=== PATIENT | female | born 1955 | race Caucasian/White ===

== ENCOUNTER 2020-04-23 07:07 | Outpatient (REF) | payer OTHER, SELFPAY ==
[2020-04-23 07:54] LABS: COVID-19 Test Negative (Negative)
== END 2020-04-23 07:08 | disposition home or self-care (01) ==
LOC: HO.LAB 07:07
PROVIDERS: Visit Provider Internal Medicine
DX: Z20.828 Contact with and (suspected) exposure to other viral communicable diseases (principal)
CPT/HCPCS: 87635

== ENCOUNTER 2020-06-07 08:05 | Outpatient (REF) | payer OTHER, SELFPAY ==
[2020-06-07 08:51] LABS: COVID-19 Test Negative (Negative); IDNOW Serial# 55D5AD1C
== END 2020-06-07 08:06 | disposition home or self-care (01) ==
LOC: HO.EMPCOV 08:05
PROVIDERS: PCP Internal Medicine; Visit Provider Internal Medicine
DX: Z20.828 Contact with and (suspected) exposure to other viral communicable diseases (principal)
CPT/HCPCS: 87635; C9803

== ENCOUNTER 2022-03-21 13:47 | Outpatient (REF) | payer OTHER, SELFPAY ==
--- NOTE | ~2022-03-21 | MM_ITS ---
EXAMINATION: MM SCREENING DIGITAL BREAST TOMOSYNTHESIS, BILATERAL CLINICAL INFORMATION: Screening. Asymptomatic. The lifetime risk of breast cancer based on the Tyrer-Cuzick Model is 4%. COMPARISON: Outside mammography 08/10/2016, 03/27/2010 ([facility]). TECHNIQUE: Digital breast tomosynthesis is performed in both the craniocaudal and mediolateral oblique views along with computer-aided detection (CAD). Synthesized 2D images are generated from the tomosynthesis. FINDINGS: The breasts are heterogeneously dense, which may obscure small masses (ACR BI-RADS breast composition Category c). There are no significant masses, abnormal calcifications, or other abnormalities. Parenchymal pattern is similar to prior outside exams. There is no developing density or architectural abnormality. The axilla and skin contours are unremarkable. No significant changes. MM/MM tomosynthesis screening BI IMPRESSION: No mammographic evidence of malignancy. ASSESSMENT: BI-RADS 1: Negative RECOMMENDATION: Routine annual mammography screening. This patient's information was entered into a reminder system with a target due date for their next mammogram.
--- NOTE | ~2022-03-21 | MM_ITS ---
EXAMINATION: BONE DENSITOMETRY CLINICAL INDICATION: Asymptomatic postprocedural ovarian failure. COMPARISON: None (current study represents initial baseline exam). TECHNIQUE: Using a [employer] DXA System (software version: 13.1) manufactured by [employer], dual-energy x-ray absorptiometry was performed of the lumbar spine and left hip. The images are of good technical quality. Summary results are attached. FINDINGS: AP SPINE L1-L4: BMD 0.901 g/cm2, Z-score -0.6, T-score -2.3, osteopenia. LEFT FEMUR, NECK: BMD 0.692 g/cm2, Z-score -0.9, T-score -2.5, osteoporosis. LEFT FEMUR, TOTAL: BMD 0.756 g/cm2, Z-score -0.7, T-score -2.0, osteopenia. IDENTIFIED RISK FACTORS: Secondary osteoporosis (early menopause). Left oophorectomy. Hysterectomy. HISTORY OF FRACTURE: None listed. MEDICATIONS: Multivitamin. MM/XR DEXA axial skeleton IMPRESSION: 1. DIAGNOSIS: Osteoporosis based on the lowest T-score value of -2.5 in the femoral neck applying World Health Organization criteria. 2. 10-YEAR FRACTURE RISK PREDICTION, FRAX: According to the guidelines, FRAX calculation should only be performed on patients in the osteopenia bone density category.?Therefore, FRAX was not performed on this patient.? 3. Treatment Recommendations: NOF guidelines recommend consideration for treatment in postmenopausal women and men age 50 and older presenting with the following: -A hip or vertebral (clinical or morphometric) fracture. -T-score less than or equal to -2.5 at the femoral neck or spine after appropriate evaluation to exclude secondary causes. -Low bone mass at the hip or spine and a 10-year fracture probability by FRAX of greater than or equal to 3% for hip fracture or greater than or equal to 20% for major osteoporotic fracture based on the [place] adapted WHO algorithm. 4. Other Recommendations: All treatment decisions require clinical judgment and consideration of individual patient factors, including patient preferences, comorbidities, previous drug use, risk factors not captured in the FRAX model (e.g. frailty, falls, vitamin D deficiency, increased bone turnover, interval significant decline in bone density) and possible under or overestimation of fracture risk by FRAX. Additional medical evaluation for secondary cause of low bone mineral density may be appropriate. FUTURE SCAN RECOMMENDATION: People with diagnosed cases of osteoporosis or at high risk for fracture should have regular bone mineral density tests. For patients eligible for Medicare, routine testing is allowed once every 2 years. The testing frequency can be increased to one year for patients who have rapidly progressing disease, those who are receiving or discontinuing medical therapy to restore bone mass, or have additional risk factors.
== END 2022-03-21 13:48 | disposition home or self-care (01) ==
LOC: HO.MAMMO 13:47
PROVIDERS: Visit Provider Internal Medicine
DX: Z12.31 Encounter for screening mammogram for malignant neoplasm of breast (principal); E89.40 Asymptomatic postprocedural ovarian failure; Z13.820 Encounter for screening for osteoporosis; Z78.0 Asymptomatic menopausal state
CPT/HCPCS: 77063; 77067; 77080

== ENCOUNTER 2022-07-31 09:27 | Day surgery (SDC) | payer OTHER, SELFPAY ==
[2022-07-24 19:01] VITALS: BMI 19.5
[2022-07-31 09:37] VITALS: BP 102/71; PULSE 104; RESP 20; TEMP 36.9; O2SAT 97
--- NOTE | 2022-07-31 09:48 | P.HPSUR_ITS ---
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 Chronic GERD Chronic insomnia Depression, major, in remission Environmental and seasonal allergies Hx of Mycobacterium avium complex infection) History of Previous Operations: Relevant previous surgery/procedure and date(s) (Hx of tonsillectomy Status post abdominal hysterectomy and left salpingo- oophorectomy) Allergies: Allergies Allergy/AdvReac Type Severity Reaction Status Date / Time codeine AdvReac swolleness Verified 07/25/22 14:04 latex AdvReac hives Verified 07/25/22 14:04 peanut AdvReac Anaphylaxis Verified 07/25/22 14:04 Penicillins AdvReac Anaphylaxis Verified 07/25/22 14:04 shellfish derived AdvReac hives Verified 07/25/22 14:04 Review of Systems Sugical H&P ROS: Negative: Constitution, Cardiovascular, Respiratory, Neurological, Psychiatric, Hem-Onc, Allergic/Immunologic, Gastrointestinal, Genitourinary, Musculoskeletal, Integumentary, Endocrine and Eyes/Ears/Nose/Throat Exam Surgical H&P Exam: Normal: HEENT, Normal: Heart, Normal: Lungs, Normal: Extremities, Normal: Abdomen, Normal: Skin and Normal: Neurological Plan Diagnosis/Plan: Unchanged I have reviewed the history and physical and performed a pertinent physical examination on my patient. No changes have occurred unless specified. Time Spent With Patient Time: Total time managing care of this patient today ____ minutes.
--- NOTE | 2022-07-31 10:11 | HO.ANESPROP2 ---
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 Chronic GERD Chronic insomnia Depression, major, in remission Environmental and seasonal allergies Hx of Mycobacterium avium complex infection Family History Family History Mother Mental health disorder Family history of problems with anesthesia: No Surgical History Surgical History Hx of tonsillectomy Status post abdominal hysterectomy and left salpingo-oophorectomy History of Problems with Anesthesia: No Social History Social History Household Members Other:: boyfriend Housing: House Are you a primary post acute care nurse practitioner to a significant other at home: No Do you presently have visiting nurse or other home services: No Patient Tobacco Use Status: Never used Tobacco e-Cigarette/Vaping Use: Never Used Use of substances other than those prescribed or required for medical reasons: No Have you been hit, kicked, punched, or otherwise hurt by someone within the past year? 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[employer] [place] Cognitive needs: No Hearing needs: No Vision needs: Yes Meds Allergies Allergy/AdvReac Type Severity Reaction Status Date / Time codeine AdvReac swolleness Verified 07/25/22 14:04 latex AdvReac hives Verified 07/25/22 14:04 peanut AdvReac Anaphylaxis Verified 07/25/22 14:04 Penicillins AdvReac Anaphylaxis Verified 07/25/22 14:04 shellfish derived AdvReac hives Verified 07/25/22 14:04 Active Medications: Current Medications Lactated Ringer's (Lr) 1,000 mls @ 80 mls/hr IVCONT .[id number] [facility] Home Medications Medication Instructions Recorded Confirmed Last Taken Type albuterol sulfate 90 mcg/actuation 2 puff inhalation Q6H PRN Wheezing 03/13/22 07/25/22 Unknown History aerosol inhaler (Ventolin HFA) diphenhydramine HCl 25 mg tablet 25 mg PO TID PRN Allergy Symptoms 03/13/22 07/25/22 Unknown History (Allergy (diphenhydramine)) omeprazole 20 mg capsule,delayed 20 mg PO DAILY 03/13/22 07/25/22 07/31/22 History release Exam Exam Date and Time: July 31, 2022 1011 Height,Weight and Vital Signs: Height 5 ft 7 in Weight 56.699 kg Last Vital Signs Temp 98.4 F 07/31/22 09:37 Pulse 104 H 07/31/22 09:37 Resp 20 07/31/22 09:37 BP 102/71 07/31/22 09:37 Pulse Ox 97 07/31/22 09:37 O2 Del Method 07/31/22 09:37 Airway Mallampati Class: II TM Dist: >3cm Neck ROM: Limited Denture: Upper Heart: rrr Lungs: cta Assessment and Plan Final Anesthetic Review Family History of Problems with Anesthesia: No History of Problems with Anesthesia: No NPO: Yes ASA Class: III Final Preanesthetic Review: No Changes in Pt Med Stat, Meds/Allgs Chart Reviewed, Consent Obtained/Reviewed and Anes Risks/Benef Reviewed Patient Risk: Intermediate Procedure Risk: Intermediate Anesthetic Plan Anesthetic Plan: MAC: and Agree w/ Assess. and Plan Disposition: Standard PACU
[2022-07-31] MEDS: Lactated Ringers 1,000 ML 80 ML IVCONT (10:32)
--- NOTE | 2022-07-31 10:39 | W.PM.OPN ---
Operative Note Operative Note Date of Service: 07/31/22 Narrative: Operative Information Procedure Description: EGD, Colonoscopy Indication: GERD, screening Anesthesia: MAC FLEXIBLE TRANSORAL UPPER GASTROINTESTINAL ENDOSCOPY AND COLONOSCOPY PROCEDURE NOTE UPPER ENDOSCOPY Consent: Indications for the procedure and potential complications of bleeding, perforation, reaction to medications and missed diagnosis were discussed with the patient and informed consent was obtained. Instrument: Olympus GIF H 190 J mid size upper endoscope Monitoring: Vital signs and clinical assessment, continuous EKG monitoring, Pulse oximetry, Carbon Dioxide monitoring and blood pressure monitoring were done throughout the procedure. Procedure: The patient was placed in the left lateral decubitis position and pre-procedure medications were administered and a bite block was placed. The endoscope was inserted into the mouth and advanced under direct vision to the third part of duodenum. A careful inspection was made as the upper endoscope was withdrawn including a retroflexed examination of the proximal stomach; Findings and interventions are described below. Findings: Larynx:normal Esophagus: GE junction at 38 cm, diaphragm hiatus at 40 cm, mild esophagitis at GEJ as well as schatzki ring, bx taken from GEJ and distal esophagus. LES was also lax. 2 cm sliding hiatal hernia noted. Stomach: Patchy erythema. Biopsies were obtained. Grade 3 flap valve on retroflexed examination of the cardia. 6-7 mm sessile polyp removed near the cardia with cold forceps Duodenum: Normal bulb and descending duodenum, Intervention: Biopsies as noted above COLONOSCOPY Instrument: Olympus variable stiffness pediatric scope 190L Colonoscopy Monitoring: Vital signs and clinical assessment, continuous EKG monitoring, Pulse oximetry, Carbon Dioxide monitoring and blood pressure monitoring were done throughout the procedure. Colon withdrawal time was 8 minutes. Procedure: The patient was placed in the left lateral decubitis position and pre-procedure medications were administered. After a digital rectal examination of the ano-rectum, the video colonoscope was inserted into the rectum and advanced through the colon to the cecum/TI. The colonoscope was slowly withdrawn in a retrograde panoramic fashion and the colon mucosa was carefully examined including a retroflexed view of the rectum. Findings and interventions are described below. Procedure Difficulty: easy Findings: Terminal Ileum-normal Cecum: 6-7 mm sessile polypoid tissue removed with cold forceps Ascending Colon: normal Transverse Colon -normal Descending Colon:normal Sigmoid Colon: midl diverticulosis Rectum: Retroflexion with moderate sized internal hemorrhoids, grade I Anorectum - normal Colon preparation: [place] Bowel Preparation Scale Right colon; 2 Transverse colon: 2 Left colon; 2 (0 = Unprepared colon segment with mucosa not seen due to solid stool that cannot be cleared. 1 = Portion of mucosa of the colon segment seen, but other areas of the colon segment not well seen due to staining, residual stool and/or opaque liquid. 2 = Minor amount of residual staining, small fragments of stool and/or opaque liquid, but mucosa of colon segment seen well. 3 = Entire mucosa of colon segment seen well with no residual staining, small fragments of stool or opaque liquid) Impression and Post Procedure Diagnosis: Endoscopy Findings: hiatal hernia schatzki ring gastritis esophagitis lax LES Colonoscopy Findings: polyp internal hemorrhoids diverticular disease Plan: Await Pathology results Repeat Colonoscopy in 5-7 years if pre cancerous polyp, 10 yrs if benign or earlier if clinically indicated High fiber diet leaflet avoid straining at stool, epsom salts and sitz bath, anusol supps or cream GERd precautions, can consider increasing PPI if needed Above findings were reviewed with the patient and relevant handouts were provided if indicated.
[2022-07-31 11:48] VITALS: BP 93/56; PULSE 77; RESP 16; TEMP 36.6; O2SAT 100
[2022-07-31 12:03] VITALS: BP 108/67; PULSE 77; RESP 16; TEMP 36.1; O2SAT 99
== END 2022-07-31 12:51 | disposition home or self-care (01) ==
PROVIDERS: PCP Internal Medicine; Visit Provider Internal Medicine Gastroenterology
PROC: (CPT 45380; principal; 2022-07-31 10:50)
DX: Z12.11 Encounter for screening for malignant neoplasm of colon (principal); D12.0 Benign neoplasm of cecum; K57.30 Diverticulosis of large intestine without perforation or abscess without bleeding; K64.0 First degree hemorrhoids; K21.00 Gastro-esophageal reflux disease with esophagitis, without bleeding; K22.2 Esophageal obstruction; K29.50 Unspecified chronic gastritis without bleeding; K31.7 Polyp of stomach and duodenum; K44.9 Diaphragmatic hernia without obstruction or gangrene; K22.4 Dyskinesia of esophagus; F32.5 Major depressive disorder, single episode, in full remission; Z79.899 Other long term (current) drug therapy; Z91.010 Allergy to peanuts; Z88.8 Allergy status to other drugs, medicaments and biological substances; Z88.0 Allergy status to penicillin; Z91.040 Latex allergy status
CPT/HCPCS: 45380; 43239; 88300; 88305; 88342; J2250

== ENCOUNTER → 2022-08-14 10:45 | Outpatient (BNVA) | payer OTHER, SELFPAY | PROVIDERS: PCP Internal Medicine; Visit Provider Nurse Practitioner Family | DX: Z13.89 Encounter for screening for other disorder (principal) ==

== ENCOUNTER 2023-09-10 07:13 | Inpatient (IN) | payer OTHER, SELFPAY ==
--- NOTE | ~2023-09-10 | CT_ITS ---
EXAMINATION: CT angio head neck stroke CLINICAL INFORMATION: Weakness. Slurred speech. COMPARISON: CT head 09/10/2023. TECHNIQUE: Recruiter Specialist images were obtained. A CT angiogram of the head and neck was performed in the arterial phase after the intravenous administration of 70 mL Omnipaque 350. Delayed postcontrast images of the head were also obtained. 3D images were processed on an independent workstation under concurrent supervision. Arterial stenoses are measured in accordance with NASCET criteria or similar method if applicable. This CT examination was performed using dose optimization techniques as appropriate, including one or more of the following: Automated exposure control, iterative reconstruction, and adjustment of technique factors (mA and/or kVp) according to patient size (this includes techniques or standardized protocols for targeted exams where dose is matched to indication/reason for exam). Fleischner Society criteria for the followup of incidental pulmonary nodules was implemented if appropriate. Total exam dose-length product 1350 mGy-cm FINDINGS: Head: Postcontrast images reveal no abnormal intracranial mass or enhancement. There is no intracranial mass effect or midline shift. Lateral and third ventricles are normal. No hydrocephalus. Pat-white matter differentiation is preserved and there is no evidence of acute territorial infarct. The calvarium and skull base are intact. Mastoid air cells and middle ear cavities are well aerated. No active paranasal sinus disease. CT angiogram neck: The aortic arch apex is normal. Origins of major aortic branches are widely patent. Common carotid arteries and carotid bifurcations are normal. No stenosis of the extracranial internal carotid arteries. The cervical segments of the vertebral arteries as well as their origins are patent. CT angiogram head: Intracranial internal carotid arteries are normal. The intradural vertebral artery segments and basilar artery are normal. Anterior, middle, and posterior cerebral artery complexes are normal. No intracranial large vessel occlusion. No identifiable aneurysm or high flow vascular lesion. The timing of the contrast injection provides adequate opacification of the dural venous sinuses which are patent. Other: Soft tissues of the neck including the thyroid gland are normal. There is pleural-parenchymal scarring at the apices of both lungs. There is no acute osseous finding. Specifically no worrisome lytic or blastic osseous lesion. CT/CT angio head neck stroke IMPRESSION: Unremarkable CT angiogram of the head and neck. No stenosis of the cervical carotid or vertebral arteries. No intracranial large vessel occlusion. No evidence of acute territorial infarct. No abnormal intracranial mass or enhancement. This critical result was discussed with Dorota Box at 8:30 AM on 09/10/2023 and it was ascertained that the content and urgency of the report was understood at the time of direct communication.
--- NOTE | ~2023-09-10 | MR_ITS ---
EXAMINATION: MR BRAIN WITHOUT CONTRAST CLINICAL INFORMATION: Weakness. Slurred speech. Headache. COMPARISON: CT angiogram of the head and neck 09/10/2023. TECHNIQUE: MRI of the brain was obtained using routine sequences without contrast. FINDINGS: There are scattered nonspecific foci of T2 FLAIR signal hyperintensity within the periventricular white matter. No acute territorial infarct. No pathological magnetic susceptibility artifact. Intracranial vascular flow voids are maintained. There is no intracranial mass effect or midline shift. No abnormal extra-axial collection. Lateral and third ventricles are normal. No hydrocephalus. Midline structures including the cervicomedullary junction are normal. No acute bone marrow signal changes. There is no mastoid or middle ear effusion. Trivial mucosal thickening within the ethmoid air cells. Globes and orbits are symmetric. MR/MR head/brain wo con IMPRESSION: There are scattered chronic small vessel ischemic changes within the periventricular white matter. Otherwise unremarkable examination. No evidence of acute territorial infarct or hemorrhage.
--- NOTE | ~2023-09-10 | CT_ITS ---
EXAMINATION: CT HEAD WITHOUT CONTRAST (STROKE PROTOCOL) CLINICAL INFORMATION: Stroke protocol. Slurred speech. COMPARISON: None available. TECHNIQUE: Contiguous axial imaging was performed from the skull base to vertex without intravenous administration of contrast. This CT examination was performed using dose optimization techniques as appropriate, variously including the following: *Automated exposure control *Adjustment of mA and/or kV according to patient size (this includes techniques or standardized protocols for targeted exams where dose is matched to indication/reason for exam; i.e. extremities or head) *Use of iterative reconstruction technique DLP: 796 mGy-cm FINDINGS: Ventricles and sulci are normal. There is no evidence of acute intracranial hemorrhage, midline shift or mass effect. Pat to white matter differentiation is well preserved. No evidence of acute territorial edematous infarction. No significant abnormal parenchymal attenuation is noted. No abnormal extra-axial fluid collection. The visualized paranasal sinuses are well-aerated. Mastoid air cells and bilateral middle ear cavities are well-aerated. Osseous calvarium and calvarial soft tissues are unremarkable CT/CT head for stroke IMPRESSION: No acute intracranial pathology. Specifically, there is no evidence of acute territorial edematous infarction or acute intracranial hemorrhage. This critical result was discussed with Dorota Box at 7:47 AM on 09/10/2023. It was ascertained that the content and urgency of the report was understood at the time of direct communication.
--- NOTE | 2023-09-10 07:14 | ECG_ITS ---
Test Reason : STROKE Blood Pressure : / mmHG Vent. Rate : 076 BPM Atrial Rate : 076 BPM P-R Int : 134 ms QRS Dur : 088 ms QT Int : 386 ms P-R-T Axes : 078 072 061 degrees QTc Int : 434 ms Normal sinus rhythm Normal ECG No previous ECGs available Referred By: Dorota Box Electronically Signed By:AJAY TRAMMELL
--- NOTE | 2023-09-10 07:15 | ED.GENADULT ---
HPI - General Adult General Chief complaint: Stroke Stated complaint: weakness Time Seen by Provider: 09/10/23 07:15 Source: patient and other (Commuter Pilot) Mode of arrival: ambulatory Limitations: altered mental status History of Present Illness HPI narrative: This is a 67-year-old female history of GERD, depression, insomnia, bronchiectasis presenting to the emergency department with complaints of headache, blurred vision, slurred speech, weakness all of which started 2 days ago have been progressively worsening. 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 He proceeded to bring her down to the emergency department for evaluation. Patient does state she has a history of migraines however they have never presented like this in the past. Patient is having a difficult time speaking and following commands. Patient appears uncomfortable. No reports of trauma. Patient not on a blood thinner. Patient denies recent illness. Denies chest pain, shortness of breath, nausea, vomiting, abdominal pain, dizziness, neck pain. LKWT- unclear Related Data Home Medications Medication Instructions Recorded Confirmed albuterol sulfate 90 mcg/actuation 2 puff inhalation Q6H PRN Wheezing 03/13/22 07/25/22 aerosol inhaler (Ventolin HFA) diphenhydramine HCl 25 mg tablet 25 mg PO TID PRN Allergy Symptoms 03/13/22 07/25/22 (Allergy (diphenhydramine)) omeprazole 20 mg capsule,delayed 20 mg PO DAILY 03/13/22 07/25/22 release Previous Rx's Medication Instructions Recorded epinephrine 0.3 mg/0.3 mL 0.3 mg (0.3 mL) IM Q4H PRN 03/13/22 injection, auto-injector (EpiPen anaphylaxis #2 ea 2-Chuck) duloxetine 60 mg capsule,delayed 60 mg PO DAILY #30 caps 04/24/22 release zolpidem 10 mg tablet 10 mg PO BEDTIME PRN insomnia #30 04/24/22 tabs Allergies Allergy/AdvReac Type Severity Reaction Status Date / Time codeine AdvReac swolleness Verified 09/10/23 07:48 latex AdvReac hives Verified 09/10/23 07:48 peanut AdvReac Anaphylaxis Verified 09/10/23 07:48 Penicillins AdvReac Anaphylaxis Verified 09/10/23 07:48 shellfish derived AdvReac hives Verified 09/10/23 07:48 Review of Systems Review of Systems: Yes all other systems are reviewed and are negative [facility] Past Medical History Attestation statement: The following information was validated with the patient. 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 Hx of Mycobacterium avium complex infection Chronic GERD Surgical History History of esophagogastroduodenoscopy (EGD) Hx of colonoscopy Status post abdominal hysterectomy and left salpingo-oophorectomy Hx of tonsillectomy Family History Family History Mother Mental health disorder Social History Social History Household Members Other:: boyfriend Housing: House Are you a primary family day care provider to a significant other at home: No Do you presently have visiting nurse or other home services: No Patient Tobacco Use Status: Never used Tobacco Smoked in Last 30 Days: No e-Cigarette/Vaping Use: Never Used Use of substances other than those prescribed or required for medical reasons: No Advance Directives: No Advance Directives Information Provided: Yes service: No Current occupational status: employed Current occupation: respiratory therapist at [employer] [place] Cognitive needs: No Hearing needs: No Vision needs: Yes Physical Exam ED Vital Signs: Vital Signs - 24 hr 09/10/23 07:48 09/10/23 08:32 09/10/23 12:05 Temperature 96.5 F L 96.8 F 97.5 F Pulse Rate 86 70 71 Respiratory Rate 14 20 16 Blood Pressure 136/76 122/79 107/75 Pulse Oximetry 99 98 99 Oxygen Delivery Method Room Air Room Air Room Air BMI result Body Mass Index 23.6 Vital signs stable Appearance: Alert.? Alert and oriented x3. Patient appears uncomfortable, slurring her words. Head: Normocephalic, atraumatic, no step-offs or deformities Eyes: Pupils equal, round and reactive to light.? ENT: Pharynx normal.? Neck: Normal inspection.? Neck supple.? CVS: Normal heart rate and rhythm.? Pulses normal.? Respiratory: No respiratory distress.? Breath sounds normal.? Abdomen: Soft and nontender.? Skin: Skin warm and dry.? Normal skin color.? Normal skin turgor.? Extremities: No lower extremity edema.? No calf ttp. Global weakness. Back: No midline tenderness, no C-spine tenderness, full range of motion, no CVA tenderness bilaterally Neuro: Oriented X 3.? No motor deficit.? No sensory deficit. CN 2-12 intact Difficult to assess NIH stroke scale as patient is intermittently following commands. NIH Stroke Scale Internal: Initial- Upon Arrival (unable to obtain on arrival. 0714) Course Reevaluation(s) Reevaluation #1: Dry read of CT head no acute infarcts or intracranial hemorrhage. CTA pending. Time: 07:55 Reevaluation #2: Now re-evaluated patient she has a little bit more awake NIH stroke scale of 9. genetic coordinator at the bedside. She has a left-sided tongue drift, slight right-sided facial droop, patient has significant right upper and right lower extremity weakness. Seems slightly confused and slow to respond w/ difficulty w/ word finding NIH Stroke Scale/Score (NIHSS) from [email or web address] on 09/10/2023 All calculations should be rechecked by clinician prior to use RESULT SUMMARY: 9 points NIH Stroke Scale INPUTS: 1A: Level of consciousness ?> 2 = Requires repeated stimulation to arouse 1B: Ask month and age ?> 0 = Both questions right 1C: 'Blink eyes' & 'squeeze hands' ?> 0 = Performs both tasks 2: Horizontal extraocular movements ?> 0 = Normal 3: Visual lockett ?> 0 = No visual loss 4: Facial palsy ?> 1 = Minor paralysis (flat nasolabial fold, smile asymmetry) 5A: Left arm motor drift ?> 0 = No drift for 10 seconds 5B: Right arm motor drift ?> 1 = Drift, but doesn't hit bed 6A: Left leg motor drift ?> 0 = No drift for 5 seconds 6B: Right leg motor drift ?> 2 = Drift, hits bed 7: Limb Ataxia ?> 1 = Ataxia in 1 Limb 8: Sensation ?> 0 = Normal; no sensory loss 9: Language/aphasia ?> 1 = Mild-moderate aphasia: some obvious changes, without significant limitation 10: Dysarthria ?> 1 = Mild-moderate dysarthria: slurring but can be understood 11: Extinction/inattention ?> 0 = No abnormality Time: 08:23 Reevaluation #3: Spoke to Dr. Edmonds who recommends MR of brain. No TNK Time: 08:30 Additional Reevaluation(s): Neurology recommends lumbar puncture to rule out encephalitis. CSF analysis and tubes ordered. Will discuss this with patient. 1057 Verbal and written consent obtained for lumbar puncture patient verbalizes understanding of need for procedure, risks and benefits. Consent in patient's chart. Will proceed with lumbar puncture. No signs of increased intracranial pressure or any contraindications to lumbar puncture. 1135 I preformed a Lumbar puncture in a sterile manner, patient tolerated procedure well. No complications. Opening pressure around 14. Clear CSF fluid. Patient now lying supine, lights or dark. Lumbar puncture did not make headache worse. 1305 Awaiting CSF results 1325 Plan- hospital admission for intractable/complex migrane. Medications Administered Discontinued Medications Generic Name Dose Route Start Last Admin Trade Name Freq PRN Reason Stop Dose Admin Acetaminophen/Butalbital/Caffeine 1 tab 09/10/23 08:53 09/10/23 12:55 Butalb/Acetamin/Caff 50/325/40 Tablet PO 09/10/23 08:54 1 tab ONCE ONE Administration Diphenhydramine HCl 25 mg 09/10/23 07:16 09/10/23 07:57 Diphenhydramine Hcl 50 Mg/Ml Vial IVPUSH 09/10/23 07:17 25 mg ONCE ONE Administration Iohexol 100 ml 09/10/23 08:02 09/10/23 08:02 Iohexol 350 Mg/Ml 100 Ml Infus..Btl IV 09/10/23 08:03 70 ml ONCE ONE Administration Ketorolac Tromethamine 30 mg 09/10/23 07:54 09/10/23 08:25 Ketorolac Tromethamine 30 Mg/Ml Vial IVPUSH 09/10/23 07:55 30 mg ONCE ONE Administration Metoclopramide HCl 10 mg 09/10/23 07:16 09/10/23 07:59 Metoclopramide Hcl 10 Mg/2 Ml Vial IVPUSH 09/10/23 07:17 10 mg ONCE ONE Administration Sumatriptan Succinate 6 mg 09/10/23 07:16 09/10/23 08:02 Sumatriptan Succinate 6 Mg/0.5 Ml Vial SUBCUT 09/10/23 07:17 6 mg ONCE ONE Administration Procedures Procedure Narrative Procedure Narrative: - US guided IV 18 G placed in right AC by octaviano RG no complications Lumbar Puncture Time Out Performed: Yes Patient Position: upright Skin Prep: Povidone-Iodine 1% Local Anesthetic: lidocaine 1% Amount of anesthesia used (mL): 4 Spinal Needle Gauge: 22G Interspace Used: L3-L4 Opening Pressure (cmH20): 16 Fluid Initially Obtained: clear Complications: none Medical Decision Making Medical Decision Making [facility] Narrative: 713 67 yo F presents w/ wewakness, slurred speech headache since saturday. LKWT unclear Stroke alert paged overhead. PE- global weakness, slurred speech. NIHSS- difficult to obtain patient intermittently following instructions Stroke alert paged. Nursing at the bedside. Patient very difficult access, I did have to obtain an ultrasound-guided line in the right AC which delayed patient going down to CT scan. Patient also with significant nausea and dry heaving also causing a delay. Concerns for complex migraine versus stroke versus intracranial hemorrhage. Unlikely meningitis, encephalitis. Will rule out metabolic derangements. No trauma low suspicion for traumatic hemorrhage. Plan - labs, stroke alert Differential Diagnosis Differential Diagnoses: The differential diagnosis associated with the presentation includes Concerns for complex migraine versus stroke versus intracranial hemorrhage. Unlikely meningitis, encephalitis. Will rule out metabolic derangements. No trauma low suspicion for traumatic hemorrhage. Admission/Observation Consideration of admission/observation: Escalation of care including admission/observation considered Likely Consult Healthcare Provider Management of the patient was discussed with: Brake Machine Operator (Neurology ) Lab Data [facility] Lab Attestation statement: I reviewed the patient's lab results. 09/10/23 07:55 09/10/23 07:55 Labs: Lab Results 09/10/23 09/10/23 09/10/23 Range/Units 07:18 07:21 07:55 WBC 4.7 L (4.8-10.8) X10*3/uL RBC 4.08 L (4.20-5.50) X10*6/uL Hgb 12.2 (12.0-16.0) g/dl Hct 36.8 L (37.0-47.0) % MCV 90.2 (80.0-98.0) fL MCH 29.9 (27.0-33.0) pg MCHC 33.2 (31.0-35.0) g/dl RDW 13.7 (11.0-16.0) % Plt Count 344 (160-400) X10*3/uL MPV 10.5 (9.4-12.3) fL Immature Gran % (Auto) 0.2 (0.0-0.4) % Neut % (Auto) 41.9 L (45-73) % Lymph % (Auto) 36.5 (20-40) % [place] % (Auto) 10.8 (2-11) % Eos % (Auto) 7.0 H (0-4) % Baso % (Auto) 3.6 H (0-2) % Lymph # (Auto) 1.7 (1.2-4.9) X10*3/uL [place] # (Auto) 0.5 (0.1-1.2) X10*3/uL Eos # (Auto) 0.3 (0.0-0.4) X10*3/uL Baso # (Auto) 0.2 (0.0-0.2) X10*3/uL Abs Immat Gran (auto) 0.01 (0.00-0.03) X10*3/uL Absolute Neuts (auto) 2.0 (2.0-8.3) x10*3/uL Absolute Nucleated RBC 0.000 (0.0-0.012) X10*3/uL Nucleated RBC % (auto) 0.0 (0.0-0.2) /100WBC Smear Tech's Comments VERIFIED ESR 2 (0-20) MM/HR PT 12.2 (11.1-13.3) SEC Whole Blood PT 12.8 (11.1-13.5) sec INR 1.0 (0.9-1.1) Whole Blood INR 1.1 (0.9-1.1) APTT 33.0 (26.0-36.8) SEC Sodium 138 (135-145) mmol/L Potassium 3.9 (3.3-5.1) mmol/L Chloride 105 (96-108) mmol/L Carbon Dioxide 28 (22-29) mmol/L Anion Gap 9 L (12-20) BUN 10 (9-16) mg/dL Creatinine 0.83 (0.5-1.4) mg/dL Estim Creat Clear Calc 68.1 Estimated GFR > 60 POC Glucose 79 (60-115) mg/dL Random Glucose 87 (60-115) mg/dL Calcium 9.4 (8.4-10.2) mg/dL Total Creatine Kinase 61 (26-140) U/L Troponin I High Sens < 2.7 (<3.5-17.0) ng/L C-Reactive Protein < 0.10 (< or = 0.50) mg/dL CSF Tube Number CSF Volume ML CSF Appearance CSF Color CSF WBC MM*3 CSF RBC MM*3 CSF Lymphocytes % CSF Monocytes % % CSF Appearance (b) CSF Glucose mg/dL CSF Total Protein (15-45) mg/dL 09/10/23 09/10/23 Range/Units 11:32 11:32 WBC (4.8-10.8) X10*3/uL RBC (4.20-5.50) X10*6/uL Hgb (12.0-16.0) g/dl Hct (37.0-47.0) % MCV (80.0-98.0) fL MCH (27.0-33.0) pg MCHC (31.0-35.0) g/dl RDW (11.0-16.0) % Plt Count (160-400) X10*3/uL MPV (9.4-12.3) fL Immature Gran % (Auto) (0.0-0.4) % Neut % (Auto) (45-73) % Lymph % (Auto) (20-40) % [place] % (Auto) (2-11) % Eos % (Auto) (0-4) % Baso % (Auto) (0-2) % Lymph # (Auto) (1.2-4.9) X10*3/uL [place] # (Auto) (0.1-1.2) X10*3/uL Eos # (Auto) (0.0-0.4) X10*3/uL Baso # (Auto) (0.0-0.2) X10*3/uL Abs Immat Gran (auto) (0.00-0.03) X10*3/uL Absolute Neuts (auto) (2.0-8.3) x10*3/uL Absolute Nucleated RBC (0.0-0.012) X10*3/uL Nucleated RBC % (auto) (0.0-0.2) /100WBC Smear Tech's Comments ESR (0-20) MM/HR PT (11.1-13.3) SEC Whole Blood PT (11.1-13.5) sec INR (0.9-1.1) Whole Blood INR (0.9-1.1) APTT (26.0-36.8) SEC Sodium (135-145) mmol/L Potassium (3.3-5.1) mmol/L Chloride (96-108) mmol/L Carbon Dioxide (22-29) mmol/L Anion Gap (12-20) BUN (9-16) mg/dL Creatinine (0.5-1.4) mg/dL Estim Creat Clear Calc Estimated GFR POC Glucose (60-115) mg/dL Random Glucose (60-115) mg/dL Calcium (8.4-10.2) mg/dL Total Creatine Kinase (26-140) U/L Troponin I High Sens (<3.5-17.0) ng/L C-Reactive Protein (< or = 0.50) mg/dL CSF Tube Number 1 4 CSF Volume 0.5 ML CSF Appearance CLEAR CSF Color COLORLESS CSF WBC 4 MM*3 CSF RBC 32 MM*3 CSF Lymphocytes 84 % CSF Monocytes % 16 % CSF Appearance (b) Clear, Colorless CSF Glucose 50 mg/dL CSF Total Protein 37.0 (15-45) mg/dL Independent Interpretation I performed an independent interpretation of an: EKG (Ventricular rate 76 ME normal, QRS normal, QT/QTC normal. EKG normal sinus rhythm no ST elevations or inversions concerning for acute ischemia.) and CT Scan Interpretation: MR- MR/MR head/brain wo con IMPRESSION: There are scattered chronic small vessel ischemic changes within the periventricular white matter. Otherwise unremarkable examination. No evidence of acute territorial infarct or hemorrhage. Radiology Impression Discussion of test interpretation with radiology: I have reviewed the radiologist's reading. External Record Review External record reviewed: Inpatient record, Office record, Outpatient record, Prior outpatient labs, Prior outpatient radiology, Primary care record and Outside ED record Prescription Management I considered prescription management with: Pain Medication Chronic Conditions Patient?s care impacted by: Other (Depression, insomnia, GERD,) Critical Care Time Critical Care Time Critical Care Time: Yes Total Critical Care Time: 120 Attestation: I attest to this time spent taking care of the patient, obtaining history, physical, reviewing labs, imaging, speaking to my attending, speaking to specialist. Discharge Plan Discharge Clinical Impression: Acute confusional migraine, Right sided weakness, Acute migraine Patient Disposition: Still a Patient Prescriptions: No Action duloxetine 60 mg capsule,delayed release(DR/EC) 60 mg PO DAILY Qty: 30 3RF zolpidem 10 mg tablet 10 mg PO BEDTIME PRN (Reason: insomnia) Qty: 30 0RF omeprazole 20 mg capsule,delayed release(DR/EC) 20 mg PO DAILY diphenhydramine HCl [Allergy (diphenhydramine)] 25 mg tablet 25 mg PO TID PRN (Reason: Allergy Symptoms) albuterol sulfate [Ventolin HFA] 90 mcg/actuation HFA aerosol inhaler 2 puff inhalation Q6H PRN (Reason: Wheezing) epinephrine [EpiPen 2-Chuck] 0.3 mg/0.3 mL auto-injector 0.3 mg IM Q4H PRN (Reason: anaphylaxis) Qty: 2 4RF
[2023-09-10 07:29] LABS: Prothrombin Time Whole Bld POC 12.8 sec (11.1-13.5); ~PT, ~INR - Anti Coag Clinic 1.1 (0.9-1.1)
[2023-09-10 07:48] VITALS: BP 136/76; PULSE 86; RESP 14; TEMP 35.8; O2SAT 99; BMI 23.6
[2023-09-10] MEDS: diphenhydrAMINE HCL 50 MG/ML VIAL 25 MG IVPUSH (07:57)
[2023-09-10] MEDS: Metoclopramide HCl 10 MG/2 ML VIAL IVPUSH ×3 (07:59→21:06)
[2023-09-10 08:00] LABS: Basophils Absolute Auto 0.2 X10*3/uL (0.0-0.2); Basophils Percent Auto 3.6 % (0-2); Eosinophils Absolute Auto 0.3 X10*3/uL (0.0-0.4); Hematocrit 36.8 % (37.0-47.0); Hemoglobin 12.2 g/dl (12.0-16.0); Imm Gran Abs Auto 0.01 X10*3/uL (0.00-0.03); Imm Gran Pct Auto 0.2 % (0.0-0.4); Lymphocytes Absolute Auto 1.7 X10*3/uL (1.2-4.9); Lymphocytes Percent Auto 36.5 % (20-40); MANUAL DIFF FLAG SCAN; Mean Corpuscular HGB Conc 33.2 g/dl (31.0-35.0); Mean Corpuscular Hemoglobin 29.9 pg (27.0-33.0); Mean Corpuscular Volume 90.2 fL (80.0-98.0); Mean Platelet Volume 10.5 fL (9.4-12.3); Monocytes Absolute Auto 0.5 X10*3/uL (0.1-1.2); Monocytes Percent Auto 10.8 % (2-11); Neutrophils Percent Auto 41.9 % (45-73); Platelet Count 344 X10*3/uL (160-400); Red Blood Count 4.08 X10*6/uL (4.20-5.50); Red Cell Distribution Width 13.7 % (11.0-16.0); SCAN SMEAR FLAG 1; White Blood Count 4.7 X10*3/uL (4.8-10.8)
[2023-09-10] MEDS: iohexoL 350 MG/ML 100 ML INFUS..BTL IV (08:02)
[2023-09-10] MEDS: SUMAtriptan succinate 6 MG/0.5 ML VIAL SUBCUT (08:02)
[2023-09-10 08:09] LABS: Prothrombin Time 12.2 SEC (11.1-13.3)
[2023-09-10 08:12] LABS: C Reactive Protein < 0.10 mg/dL (< or = 0.50)
[2023-09-10 08:13] LABS: Stroke Lab Use COMPLETE
[2023-09-10 08:14] LABS: Anion Gap 9 (12-20); Blood Urea Nitrogen 10 mg/dL (9-16); Calcium 9.4 mg/dL (8.4-10.2); Carbon Dioxide 28 mmol/L (22-29); Chloride 105 mmol/L (96-108); Creatinine Clr Calc Pharmacy 68.1; Estimated Glomerular Filt Rate > 60; Glucose Random 87 mg/dL (60-115); Potassium 3.9 mmol/L (3.3-5.1); Sodium 138 mmol/L (135-145)
[2023-09-10] MEDS: Ketorolac Tromethamine 30 MG/ML VIAL IVPUSH (08:25)
[2023-09-10 08:31] LABS: Troponin-I High Sensitivity < 2.7 ng/L (<3.5-17.0)
[2023-09-10 08:32] VITALS: BP 122/79; PULSE 70; RESP 20; TEMP 36; O2SAT 98
[2023-09-10 08:32] LABS: SLIDE REVIEW VERIFIED
[2023-09-10 08:40] LABS: Erythrocyte Sedimentation Rate 2 MM/HR (0-20)
--- NOTE | 2023-09-10 08:59 | MHC.STROKE ---
Addendum entered by Danita Lynch 09/10/23 09:53: According to provider, patient started with headache on Saturday. Did not come to work due to not feeling well yesterday. Hx of migraines. Unclear as to actual LKWT. Multiple attempts to get in touch with significant other with no success. Original Note: Notified of stroke alert in ED. Upon arrival to ED, patient was located in bed 9. Pt reports headache and not feeling well. Was brought to ED by coworker who felt patient exhibited weakness and confusion. Pt awake, alert. Oriented to name and place. Weakness noted to right side (arm and leg). +drift right side. Right sided facial droop noted. Tongue deviated to left. Word finding difficulties noted along with slight slurred speech. NIH score 9. CTH and CTH/N completed. Spoke with neurology. Plan is for MRI Pt updated on plan. Currently in route to MRI. This RN to accompany patient.
--- NOTE | 2023-09-10 09:10 | PC.NURSE ---
pt to MRI w stroke RN and transport.
--- NOTE | 2023-09-10 09:50 | MHC.STROKE ---
Returned from MRI. Pt reports slight improvement from headache. Neurology attempted to evaluate patient however she was off unit getting MRI. Pt currently resting with eyes closed. Awaiting MRI results. Provider reporting that she is going to do an LP. Will continue to assist as needed.
[2023-09-10 10:39] LABS: Glucose, Whole Blood 79 mg/dL (60-115)
--- NOTE | 2023-09-10 11:15 | PC.NURSE ---
late note: assumed care of pt at 712, pt drove in to work today and was noted on arrival to [facility] that she had increased confusion/headache. pt reports headache x 2 days, unclear LKWT, hx migraines but pt reports that symptoms are worse than typical migraines. delay in pt to CT d/t difficulty IV placement requiring provider u/s placement. 18G IV placed R AC by provider via u/s. pt to CT. pt alert to person/place, stated year as 2022, unknown president, periods of confusion. on exam pt noted to have slurred speech w difficulty word finding, R sided facial droop, L tongue deviation, R upper and lower extremity weakness. labs obtained, pt medicated per AUG. reports improvement in headache from 8 to 10/01. MRI screening form completed w pt and faxed to MRI. pt to MRI w stroke RN. PO medications held pending pt's ability to participate in swallow screen. plan for lumbar puncture per provider.
--- NOTE | 2023-09-10 11:49 | PC.NURSE ---
this nurse assisted JAMIN Box with lumbar punture. the patient was positioned hunching over the bedside table, JAMIN Box prepared the sterile field and draped the patient. a bandage was applied at the puncture site, and pt was positioned supine. pt complains of slight headache. pt to remain supine for 45 minutes. Significant other brought to bedside. CSF was obtained and sent to laboratory
--- NOTE | 2023-09-10 11:57 | PM.NEUROCN ---
History of Present Illness Data of Consult Service Date: 09/10/23 Primary Care Provider: Belia Cooper MD [facility] Reason for consult: Severe headaches and mental changes This is a 67-year-old female history of GERD, depression, insomnia, bronchiectasis and migraines presented to the emergency department with 3 days of severe headache, blurred vision, slurred speech, weakness. 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 He proceeded to bring her down to the emergency department for evaluation. Patient does state she has a history of migraines however they have never presented for this long before. Patient was having difficult time speaking and following commands which has cleared. MRI shows no acute infarct and only minor microvascular changes. CTA was negative. LP results are pending.. 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 Hx of Mycobacterium avium complex infection Chronic GERD Family History Family History Mother Mental health disorder Surgical History Surgical History History of esophagogastroduodenoscopy (EGD) Hx of colonoscopy Status post abdominal hysterectomy and left salpingo-oophorectomy Hx of tonsillectomy Social History Social History Household Members Other:: boyfriend Housing: House Are you a primary child care attendant to a significant other at home: No Do you presently have visiting nurse or other home services: No Patient Tobacco Use Status: Never used Tobacco Smoked in Last 30 Days: No e-Cigarette/Vaping Use: Never Used Use of substances other than those prescribed or required for medical reasons: No Advance Directives: No Advance Directives Information Provided: Yes service: No Current occupational status: employed 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[place] Cognitive needs: No Hearing needs: No Vision needs: Yes Meds Allergies Allergy/AdvReac Type Severity Reaction Status Date / Time codeine AdvReac swolleness Verified 09/10/23 07:48 latex AdvReac hives Verified 09/10/23 07:48 peanut AdvReac Anaphylaxis Verified 09/10/23 07:48 Penicillins AdvReac Anaphylaxis Verified 09/10/23 07:48 shellfish derived AdvReac hives Verified 09/10/23 07:48 Home Medications Medication Instructions Recorded Confirmed Last Taken Type albuterol sulfate 90 mcg/actuation 2 puff inhalation Q6H PRN Wheezing 03/13/22 07/25/22 Unknown History aerosol inhaler (Ventolin HFA) diphenhydramine HCl 25 mg tablet 25 mg PO TID PRN Allergy Symptoms 03/13/22 07/25/22 Unknown History (Allergy (diphenhydramine)) omeprazole 20 mg capsule,delayed 20 mg PO DAILY 03/13/22 07/25/22 07/31/22 History release Physical Exam Vital Signs: Vital Signs: Last Vital Signs Temp 96.8 F 09/10/23 08:32 Pulse 70 09/10/23 08:32 Resp 20 09/10/23 08:32 BP 122/79 09/10/23 08:32 Pulse Ox 98 09/10/23 08:32 O2 Del Method Room Air 09/10/23 08:32 BMI result Body Mass Index 23.6 Neuro: Other: She's alert, pleasant and cooperative with no difficulty comprehending her expressing herself. Speech is not slurred. Her she was oriented except wasn't sure of the exact date in August. She knew it was Saturday. Cranial nerves II through XII are normal. Muscle tone, and strength were normal. Plantar response is flexor. Neck was supple. Results Labs 09/10/23 07:55 09/10/23 07:55 Labs: Short CBC 09/10/23 Range/Units 07:55 WBC 4.7 L (4.8-10.8) X10*3/uL Hgb 12.2 (12.0-16.0) g/dl Hct 36.8 L (37.0-47.0) % Plt Count 344 (160-400) X10*3/uL BMP 09/10/23 07:55 Sodium 138 Potassium 3.9 Chloride 105 Carbon Dioxide 28 BUN 10 Creatinine 0.83 Calcium 9.4 Cardiac Enzymes 09/10/23 Range/Units 07:55 Total Creatine Kinase 61 (26-140) U/L Assessment and Plan (1) Acute confusional migraine: Status: Acute Most likely this represents a migraine phenomena. There is no evidence of vascular disease or stroke. Lumbar puncture results are pending but I don't believe she has an encephalitis. Recommendations: I would treat this as a status migrainosus. If the headaches continue IV DHE 1 mg preceded by 10 mg of Reglan IV every 8 hours x3 doses is recommended. I have personally reviewed her MRI and and labs as well as CTA. Procedures Date of Service Date of Service: 09/10/23
[2023-09-10 12:05] VITALS: BP 107/75; PULSE 71; RESP 16; TEMP 36.4; O2SAT 99
[2023-09-10 12:34] LABS: Glucose CSF 50 mg/dL
[2023-09-10 12:41] LABS: CSF Appearance Clear, Colorless; CSF Tube # 1
[2023-09-10] MEDS: Butalb/Acetamin/Caff 50/325/40 TABLET 1 TAB PO (12:55)
--- NOTE | 2023-09-10 12:55 | PC.NURSE ---
pass nursing swallow. per PA, ok to give PO fioricet
[2023-09-10 13:13] LABS: Appearance CSF CLEAR; CSF Tube # 4; CSF Volume 0.5 ML; Color CSF COLORLESS; Red Blood Cell CSF 32 MM*3; White Blood Cell CSF 4 MM*3
[2023-09-10 13:15] LABS: CSF Monos 16 %; Lymphocytes CSF 84 %
--- NOTE | 2023-09-10 13:43 | PM.IMHP ---
History of Present Illness Date of Service: 09/10/23 Chief Complaint: headahce, right sided weakness 67F PMH MAC/bronchiectasis s/p wedge resection, chronic insomnia, migraines, mood disorder presented with headache, right sided weakness. patient reports headach began about 3 days ptp. does have history of migrains but remote, previously controlled with triptan, but no longer needing. on day of presentation came to work and was feeling unwell. severe headache, weakness, blurred vision, slurred speech, word finding. noted to have right facial UE and LE weakness and parasthesias. in ED CTA was negative, mri no acute infarct, LP grossly normal, encephalitis panel pending. symptoms have improved somewhat, but have not completely resolved. 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 Hx of Mycobacterium avium complex infection Chronic GERD Family History Mother Mental health disorder Surgical History History of esophagogastroduodenoscopy (EGD) Hx of colonoscopy Status post abdominal hysterectomy and left salpingo-oophorectomy Hx of tonsillectomy Social History Household Members Other:: boyfriend Housing: House Are you a primary primary care md to a significant other at home: No Do you presently have visiting nurse or other home services: No Patient Tobacco Use Status: Never used Tobacco Smoked in Last 30 Days: No e-Cigarette/Vaping Use: Never Used Use of substances other than those prescribed or required for medical reasons: No Advance Directives: No Advance Directives Information Provided: Yes service: No Current occupational status: employed Current occupation: respiratory therapist at [employer] [place] Cognitive needs: No Hearing needs: No Vision needs: Yes Meds Allergies Allergy/AdvReac Type Severity Reaction Status Date / Time codeine AdvReac swolleness Verified 09/10/23 07:48 latex AdvReac hives Verified 09/10/23 07:48 peanut AdvReac Anaphylaxis Verified 09/10/23 07:48 Penicillins AdvReac Anaphylaxis Verified 09/10/23 07:48 shellfish derived AdvReac hives Verified 09/10/23 07:48 Active Medications: Current Medications Dihydroergotamine Mesylate (Dihydroergotamine Mesylate 1 Mg/Ml Ampul) 1 mg IVPUSH Q8H CHUNG Stop: 09/11/23 05:46 Metoclopramide HCl (Metoclopramide Hcl 10 Mg/2 Ml Vial) 10 mg IVPUSH Q8H PRN PRN Reason: prior to DHE administration Home Medications Medication Instructions Recorded Confirmed Last Taken Type albuterol sulfate 90 mcg/actuation 2 puff inhalation Q6H PRN Wheezing 03/13/22 07/25/22 Unknown History aerosol inhaler (Ventolin HFA) diphenhydramine HCl 25 mg tablet 25 mg PO TID PRN Allergy Symptoms 03/13/22 07/25/22 Unknown History (Allergy (diphenhydramine)) omeprazole 20 mg capsule,delayed 20 mg PO DAILY 03/13/22 07/25/22 07/31/22 History release Physical Exam Vital Signs and Narrative: Vital Signs: Last Vital Signs Temp 97.5 F 09/10/23 12:05 Pulse 71 09/10/23 12:05 Resp 16 09/10/23 12:05 BP 107/75 09/10/23 12:05 Pulse Ox 99 09/10/23 12:05 O2 Del Method Room Air 09/10/23 12:05 BMI result Body Mass Index 23.6 General: AO X 3, in discomfort Resp: CTA bilateral, no accessory muscles used CVS: S1,S2,RRR GI: soft, non tender, non distended Neuro: numbness to right arm and face, 4+/5 RUE, alert Psych: appropriate affect, appropriate insight Results Labs 09/10/23 07:55 09/10/23 07:55 Labs: Laboratory Results - last 24 hr 09/10/23 09/10/23 09/10/23 07:18 07:21 07:55 MCV 90.2 MCH 29.9 MCHC 33.2 RDW 13.7 Plt Count 344 MPV 10.5 Immature Gran % (Auto) 0.2 Neut % (Auto) 41.9 L Lymph % (Auto) 36.5 Fleming % (Auto) 10.8 Eos % (Auto) 7.0 H Baso % (Auto) 3.6 H Lymph # (Auto) 1.7 Fleming # (Auto) 0.5 Eos # (Auto) 0.3 Baso # (Auto) 0.2 Abs Immat Gran (auto) 0.01 Absolute Neuts (auto) 2.0 Absolute Nucleated RBC 0.000 Nucleated RBC % (auto) 0.0 Smear Tech's Comments VERIFIED ESR 2 PT 12.2 Whole Blood PT 12.8 INR 1.0 Whole Blood INR 1.1 APTT 33.0 Anion Gap 9 L Estim Creat Clear Calc 68.1 Estimated GFR > 60 POC Glucose 79 Random Glucose 87 Calcium 9.4 Total Creatine Kinase 61 Troponin I High Sens < 2.7 C-Reactive Protein < 0.10 CSF Tube Number CSF Volume CSF Appearance CSF Color CSF WBC CSF RBC CSF Lymphocytes CSF Monocytes % CSF Appearance (b) CSF Glucose CSF Total Protein 09/10/23 09/10/23 11:32 11:32 MCV MCH MCHC RDW Plt Count MPV Immature Gran % (Auto) Neut % (Auto) Lymph % (Auto) Fleming % (Auto) Eos % (Auto) Baso % (Auto) Lymph # (Auto) Fleming # (Auto) Eos # (Auto) Baso # (Auto) Abs Immat Gran (auto) Absolute Neuts (auto) Absolute Nucleated RBC Nucleated RBC % (auto) Smear Tech's Comments ESR PT Whole Blood PT INR Whole Blood INR APTT Anion Gap Estim Creat Clear Calc Estimated GFR POC Glucose Random Glucose Calcium Total Creatine Kinase Troponin I High Sens C-Reactive Protein CSF Tube Number 1 4 CSF Volume 0.5 CSF Appearance CLEAR CSF Color COLORLESS CSF WBC 4 CSF RBC 32 CSF Lymphocytes 84 CSF Monocytes % 16 CSF Appearance (b) Clear, Colorless CSF Glucose 50 CSF Total Protein 37.0 Imaging Radiologist's Impressions: Impressions Head CT 09/10/23 07:34 IMPRESSION: No acute intracranial pathology. Specifically, there is no evidence of acute territorial edematous infarction or acute intracranial hemorrhage. This critical result was discussed with Dorota Box at 7:47 AM on 09/10/2023. It was ascertained that the content and urgency of the report was understood at the time of direct communication. Head/Neck CTA 09/10/23 07:39 IMPRESSION: Unremarkable CT angiogram of the head and neck. No stenosis of the cervical carotid or vertebral arteries. No intracranial large vessel occlusion. No evidence of acute territorial infarct. No abnormal intracranial mass or enhancement. This critical result was discussed with Dorota Box at 8:30 AM on 09/10/2023 and it was ascertained that the content and urgency of the report was understood at the time of direct communication. Brain MRI 09/10/23 09:45 IMPRESSION: There are scattered chronic small vessel ischemic changes within the periventricular white matter. Otherwise unremarkable examination. No evidence of acute territorial infarct or hemorrhage. Assessment and Plan (1) Acute migraine: Status: Acute Plan 67F PMH MAC/bronchiectasis s/p wedge resection, chronic insomnia, migraines, mood disorder presented with headache, right sided weakness. acute status migrainosus neuro appreciated 3 doses DHE with reglan premedication follow up csf panel chronic insomnia ambien mood disorder cymbalta dvt prophylaxis - lovenox full code Quality Stroke Does the patient have a stroke diagnosis?: No VTE Prior VTE?: No VTE Risk Level:: Medical - moderate - high VTE Device Contraindication: Treatment Not Indicated VTE Drug Contraindication: N/A - Med Ordered
--- NOTE | 2023-09-10 14:38 | PHA.MEDREC ---
Pharmacy Consult ? Medication Reconciliation Pharmacy has completed the medication reconciliation.
[2023-09-10 15:00] LABS: Cryptococcus neoformans/gattii Not Detected (Not Detect.); Enterovirus Not Detected (Not Detect.); Escherichia coli K1 Not Detected (Not Detect.); Haemophilus influenzae Not Detected (Not Detect.); Herpes simplex virus 1 Not Detected (Not Detect.); Herpes simplex virus 2 Not Detected (Not Detect.); Human herpesvirus 6 Not Detected (Not Detect.); Human parechovirus Not Detected (Not Detect.); Listeria monocytogenes Not Detected (Not Detect.); Neisseria meningitidis Not Detected (Not Detect.); Streptococcus agalactiae Not Detected (Not Detect.); Streptococcus pneumoniae Not Detected (Not Detect.); Varicella zoster virus Not Detected (Not Detect.)
[2023-09-10] MEDS: Dihydroergotamine Mesylate 1 MG/ML AMPUL IVPUSH ×2 (15:19→21:06)
[2023-09-10] MEDS: 0.9 % Sodium Chloride Flush 3 ML SYRINGE IVFLUSH (15:22)
--- NOTE | 2023-09-10 15:26 | PC.NURSE ---
ultrasound guided line inserted by PA. pt reports some headache pain, about a 6/10. medicated per MAR. no slurred speech noted, pt alert and oriented.
[2023-09-10 16:23] VITALS: BP 114/73; PULSE 75; RESP 13; TEMP 36.6; O2SAT 100
[2023-09-10 18:34] VITALS: BP 121/75; PULSE 76; RESP 18; TEMP 36.4; O2SAT 99
--- NOTE | 2023-09-10 19:00 | PC.NURSE ---
Assumed care of pt at 1900.
[2023-09-10 20:25] VITALS: BP 106/63; PULSE 72; RESP 16; TEMP 36.8; O2SAT 97
[2023-09-11] MEDS: Dihydroergotamine Mesylate 1 MG/ML AMPUL IVPUSH (06:33)
[2023-09-11] MEDS: 0.9 % Sodium Chloride Flush 3 ML SYRINGE IVFLUSH ×2 (06:33→10:09)
[2023-09-11] MEDS: Omeprazole 20 MG CAPSULE.DR PO (06:34)
[2023-09-11 06:39] VITALS: BP 123/71; PULSE 86; RESP 16; O2SAT 97
--- NOTE | 2023-09-11 09:44 | PM.DS ---
DS: Providers Provider Date of Service: 09/11/23 Date of admission: 09/10/23 13:42 Primary care physician: Belia Cooper MD DS: Diagnosis Discharge Diagnosis (1) Acute migraine: Status: Acute DS: Summary Hospital Course Hospital Course: from initial hpi: 67F PMH MAC/bronchiectasis s/p wedge resection, chronic insomnia, migraines, mood disorder presented with headache, right sided weakness. patient reports headach began about 3 days ptp. does have history of migrains but remote, previously controlled with triptan, but no longer needing. on day of presentation came to work and was feeling unwell. severe headache, weakness, blurred vision, slurred speech, word finding. noted to have right facial UE and LE weakness and parasthesias. in ED CTA was negative, mri no acute infarct, LP grossly normal, encephalitis panel pending. symptoms have improved somewhat, but have not completely resolved. hospital course: Patient was admitted for acute status migrainous. She was seen by neurology who recommended 3 doses of DHE which improved symptoms. Recommendations were for propranolol 40 mg b.i.d. for migraine prophylaxis. She should follow up outpatient with Neurology for further management of migraines. For chronic insomnia she was continued on Ambien. For mood disorder was continued on Cymbalta. Patient is feeling better will be discharged home. Time Attestation Discharge Coordination Time (in mins): 35 Quality: Safe Use of Opioids Does Pt have an Active Cancer Diagnosis on the Problem List?: No Quality: Stroke Does the patient have a stroke diagnosis?: No Physical Exam Vital Signs: Vital Signs: Last Vital Signs Temp 98.3 F 09/10/23 20:25 Pulse 86 09/11/23 06:39 Resp 16 09/11/23 06:39 BP 123/71 09/11/23 06:39 Pulse Ox 97 09/11/23 06:39 O2 Del Method Room Air 09/11/23 06:39 BMI result Body Mass Index 23.6 General: AO X 3, no acute distress Resp: CTA bilateral, no accessory muscles used CVS: S1,S2,RRR GI: soft, non tender, non distended Neuro: motor grossly intact, alert Psych: appropriate affect, appropriate insight DS: Data Data Completed and Pending Labs on day of discharge: Laboratory Results - last 24 hr 09/10/23 09/10/2324 07:18 07:21 11:32 Whole Blood PT 12.8 Whole Blood INR 1.1 POC Glucose 79 CSF Tube Number 1 CSF Volume CSF Appearance CSF Color CSF WBC CSF RBC CSF Lymphocytes CSF Monocytes % CSF Appearance (b) CSF Glucose CSF Total Protein CSF C.neoform/gat PCR CSF CMV DNA (PCR) CSF Enterovirus (PCR) CSF E. coli K1 (PCR) CSF H. influenzae (PCR) CSF HSV I (PCR) CSF HSV II (PCR) CSF HHV 6 (PCR) CSF L.monocytogenes PCR CSF N. meningitidis PCR CSF Parechovirus (PCR) CSF S. agalactiae (PCR) CSF S. pneumoniae (PCR) CSF VZV (PCR) 09/10/23 11:32 Whole Blood PT Whole Blood INR POC Glucose CSF Tube Number 4 CSF Volume 0.5 CSF Appearance CLEAR CSF Color COLORLESS CSF WBC 4 CSF RBC 32 CSF Lymphocytes 84 CSF Monocytes % 16 CSF Appearance (b) Clear, Colorless CSF Glucose 50 CSF Total Protein 37.0 CSF C.neoform/gat PCR Not Detected CSF CMV DNA (PCR) Not Detected CSF Enterovirus (PCR) Not Detected CSF E. coli K1 (PCR) Not Detected CSF H. influenzae (PCR) Not Detected CSF HSV I (PCR) Not Detected CSF HSV II (PCR) Not Detected CSF HHV 6 (PCR) Not Detected CSF L.monocytogenes PCR Not Detected CSF N. meningitidis PCR Not Detected CSF Parechovirus (PCR) Not Detected CSF S. agalactiae (PCR) Not Detected CSF S. pneumoniae (PCR) Not Detected CSF VZV (PCR) Not Detected Preliminary micro results at discharge 09/10/23 11:32 CSF Culture - Preliminary Cerebrospinal Fluid No growth after 1 day Discharge Plan Discharge Anticipated Discharge Date/Time: 09/11/23 09:41 Patient Disposition: Home, Self-Care Discharge Diagnosis: status migrainus Referrals: Belia Cooper MD [Primary Care Provider] - 1 Week Víctor Rosario MD [Physician] - 1 Week Discharge Medications: New propranolol 40 mg tablet 40 mg PO BID Qty: 180 0RF Continued duloxetine 60 mg capsule,delayed release(DR/EC) 60 mg PO DAILY Qty: 30 3RF zolpidem 10 mg tablet 10 mg PO BEDTIME PRN (Reason: insomnia) Qty: 30 0RF esomeprazole magnesium [Nexium] 20 mg Capsule,Delayed Release(Dr/Ec) 20 mg PO BID Discharge Orders: Discharge Order (Routine); Ordered 09/11/23 Ordered By: Maurisio Toscano Diet: Advance to usual diet Activity on Discharge: As tolerated Stand Alone Forms: Patient Portal Discharge page Care Plan Goals: avoid migraines Health Concerns: migraines Plan of Treatment: trial of propranolol for migraine prophylaxis, follow up with neurology. Assessment: see above
[2023-09-11] MEDS: Enoxaparin Sodium 40 MG/0.4 ML SYRINGE SUBCUT (10:10)
[2023-09-11] MEDS: DULoxetine HCl 60 MG CAPSULE.DR PO (10:10)
[2023-09-11 11:28] VITALS: BP 126/66; PULSE 81; RESP 18; TEMP 36.3; O2SAT 99
[2023-09-18 21:28] LABS: Lyme IgG CSF Immunoblot NO BANDS DETECTED; Lyme IgM CSF Immunoblot NO BANDS DETECTED
== END 2023-09-11 11:24 | disposition home or self-care (01) | DRG 54 ==
LOC: HO.ED 13:03 → HO.EDOVER 13:50
PROVIDERS: Physician Assistant; Admitting Provider Internal Medicine; Emergency Provider Emergency Medicine; PCP Internal Medicine; Visit Provider Internal Medicine
DX: G43.801 Other migraine, not intractable, with status migrainosus (principal); F39 Unspecified mood [affective] disorder; Z91.040 Latex allergy status; F51.04 Psychophysiologic insomnia; J47.9 Bronchiectasis, uncomplicated; Z79.899 Other long term (current) drug therapy
CPT/HCPCS: 36415; 70450; 70496; 70498; 70551; 80048; 82550; 82945; 82947; 84157; 84484; 85025; 85610; 85652; 85730; 86140; 86617; 87015; 87070; 87205; 87483; 89051; 93005; 99285; J1110; J1200; J1650; J1885; J2765; J3030; Q9967

== ENCOUNTER → 2023-09-10 07:14 | Outpatient (BNV) | payer OTHER, SELFPAY | PROVIDERS: Admitting Provider Internal Medicine; Emergency Provider Emergency Medicine; PCP Internal Medicine; Visit Provider Internal Medicine | DX: R53.1 Weakness (principal) | CPT/HCPCS: 93010 ==

== ENCOUNTER → 2023-09-10 08:32 | Outpatient (BNV) | payer OTHER, SELFPAY | PROVIDERS: Emergency Provider Emergency Medicine; PCP Internal Medicine; Visit Provider Psychiatry & Neurology Neurology | DX: G43.901 Migraine, unspecified, not intractable, with status migrainosus (principal) | CPT/HCPCS: 99223 ==

== ENCOUNTER → 2023-09-10 13:42 | Outpatient (BNV) | payer OTHER, SELFPAY | PROVIDERS: Admitting Provider Internal Medicine; Emergency Provider Emergency Medicine; PCP Internal Medicine; Visit Provider Internal Medicine | DX: G43.901 Migraine, unspecified, not intractable, with status migrainosus (principal) | CPT/HCPCS: 99223; 99239 ==

== ENCOUNTER 2024-01-15 08:57 | Outpatient (AMB) | payer OTHER, SELFPAY ==
--- NOTE | 2024-01-15 09:01 | A.OFFPC_ITS ---
Vital Signs 01/15/24 09:02 Height 5 ft 8 in Weight 133 lb BMI 20.2 BP 102/66 Blood Pressure Location Lt brachial Position Sitting Pulse 85 Pulse Source Pulse Oximeter Pulse Oximetry (%) 100 Oxygen Delivery Method Room Air Intake Visit Reasons: PE Intake Note: Pt is here today for PE. Pt last mammo was in 02/2022 Allergies codeine Adverse Reaction (Verified 01/15/24 09:27) swolleness latex Adverse Reaction (Verified 01/15/24 09:27) hives peanut Adverse Reaction (Verified 01/15/24 09:27) Anaphylaxis Penicillins Adverse Reaction (Verified 01/15/24 09:27) Anaphylaxis shellfish derived Adverse Reaction (Verified 01/15/24 09:27) hives Medication List - Last Reconciled 01/15/24 by Belia Cooper MD cholecalciferol (vitamin D3) 50 mcg PO DAILY duloxetine 60 mg PO DAILY epinephrine (EpiPen 2-Chuck) 0.3 mg IM Q4H PRN esomeprazole magnesium (Nexium) 20 mg PO BID fluticasone propionate 50 mcg/actuation (Flonase Allergy Relief) 1 spray intranasal DAILY propranolol 40 mg PO BID zolpidem 10 mg PO BEDTIME PRN Tobacco use date assessed: 01/15/24 Fall risk assessment: No Falls in past year Last assessed Fall Risk: 01/15/24 Dental Screening Dental Screen Date: 01/15/24 Did you have a dental visit in the last 12 months?: Yes Did you have a dental problem in the last 6 months where you did not have access to dental care?: No Was dental information given to patient?: Patient has dentist HPI PE HPI Details 68-year-old lady here today for physical exam. She has migraine headaches, currently on propranolol . She sees Esha Herbert her psychiatrist for treatment depression, currently on duloxetine and takes zolpidem as needed for insomnia. She had a screening mammogram and bone density scan in 2021, latter showed presence of osteoporosis in left femoral neck.. She had a colonoscopy screening in [address] 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 Chronic GERD Surgical History History of esophagogastroduodenoscopy (EGD) Hx of colonoscopy Status post abdominal hysterectomy and left salpingo-oophorectomy Hx of tonsillectomy Family History Mother Mental health disorder Social History Household Members Other:: boyfriend Housing: House Are you a primary property caretaker to a significant other at home: No Do you presently have visiting nurse or other home services: No Patient Tobacco Use Status: Never used Tobacco e-Cigarette/Vaping Use: Never Used service: No Current occupational status: employed Current occupation: respiratory therapist at [employer] [place] Cognitive needs: No Hearing needs: No Vision needs: Yes Questionnaire PHQ-9 Over the last 2 weeks, how often have you been bothered by any of the following problems? 1. Little interest or pleasure in doing things: not at all 2. Feeling down, depressed, or hopeless: not at all 3. Trouble falling or staying asleep, or sleeping too much: several days 4. Feeling tired or having little energy: not at all 5. Poor appetite or overeating: not at all 6. Feeling bad about yourself - or that you are a failure or have let yourself or your family down: not at all 7. Trouble concentrating on things, such as reading the newspaper or watching television: not at all 8. Moving or speaking so slowly that other people could have noticed. Or the opposite - being so fidgety or restless that you have been moving around a lot more than usual: not at all 9. Thoughts that you would be better off or of hurting yourself in some way: not at all Total score: 1 Depression Screening Interpretation: Negative Depression Screening Done: Yes Source: Developed by Drs. Patrice Garcia, Agustina Soler, Karan Morrow and colleagues, with an educational cynthia from [employer]. Thrive Questionnaire Date Thrive assessed: 01/15/24 I am a: Patient What is your living situation today?: I have a steady place to live Within the past 12 months, did the food you bought not last and you didn't have the money to get more?: Never true Within the past 12 months, did you worry whether your food would run out before you got money to buy more?: Never true Do you have trouble paying for medicines?: No Do you have trouble getting transportation to medical appointments?: No Do you have trouble paying your heating and electricity bill?: No Do you have trouble taking care of your child, family member or friend?: No Do you have trouble with day-to-day activities such as bathing, preparing meals, shopping, managing finances, etc.?: No Are you currently unemployed and looking for a job?: No Are you interested in more education?: Yes Please select the resources that you would like help with: Housing/Assisted Currently or been in a relationship where the following occur: No concerns reported THRIVE Score: 0 AUDIT C Alcohol Use Questionnaire (AUDIT-C) 1. How often do you have a drink containing alcohol?: Never 3. How often do you have six or more drinks on one occasion?: Never Total Score: 0 TENNILLE-7 AMB Questionnaire TENNILLE-7 Date TENNILLE - 7 assessed: 01/15/24 Feeling nervous, anxious, or on edge: 0 = Not at all Not being able to stop or control worryin = Not at all Worrying too much about different things: 0 = Not at all Trouble relaxin = Not at all Being so restless that it is hard to sit still: 0 = Not at all Becoming easily annoyed or irritable: 0 = Not at all Feeling afraid as if something awful might happen: 0 = Not at all Total TENNILLE-7 score (0-4 normal; 5-9 mild; 10-14 moderate; 15-21 severe): 0 Source: Developed by Drs. Patrice Garcia, Agustina Soler, Karan Morrow and colleagues, with an educational cynthia from [employer]. Review of Systems Const Denies body aches, Denies fatigue, Denies fever(s), Denies headache(s) and Denies weakness Eyes Details: Goes to [employer] every 2 years, has myopia, wears contact lens Denies change in vision, Denies eye discharge and Denies itchy eyes ENT Details: Gets dental prophylaxis every 6 months Denies dizziness, Denies headache(s), Denies nasal congestion, Denies nasal discharge and Denies sore throat Card Denies chest pain, Denies lightheadedness, Denies palpitations and Denies dyspnea Resp Denies chest congestion, Denies cough, Denies dyspnea and Denies wheezing GI Denies abdominal pain and Denies change in bowel habits Denies hematuria, Denies urinary frequency, Denies dysuria and Denies urinary urgency Musc Reports no additional complaints Skin/Breast Denies breast pain, Denies breast mass, Denies lesions and Denies rash Neuro Denies dizziness, Denies headache(s) and Denies weakness Psych Reports as per HPI Endo Denies fatigue, Denies polydipsia, Denies polyuria and Denies palpitations Néstor/Lymph Denies easy bruising Aller/Immun Denies itchy eyes, Denies seasonal rhinorrhea and Denies wheezing Physical exam (Primary Care) Vital Signs: Last Vital Signs Pulse 85 01/15/24 09:02 BP 102/66 01/15/24 09:02 Pulse Ox 100 01/15/24 09:02 Oxygen Delivery Method Room Air 01/15/24 09:02 BMI result Body Mass Index 20.2 Tobacco/Smoking Status: Tobacco use Status Tobacco use date assessed 01/15/24 01/15/24 09:06 Patient Tobacco Use Status Never used Tobacco 01/15/24 09:06 e-Cigarette/Vaping Use Never Used 01/15/24 09:06 PHQ-9: PHQ-9 Score PHQ-9: Total score 1 01/15/24 09:59 Depression Screening Interpretation: Negative Thrive Assessment: Date of Thrive Assessment Date Thrive assessed 01/15/24 01/15/24 09:06 Currently or been in a relationship where the following occur: No concerns reported Const Other: Alert oriented x3, no acute distress noted ambulatory with normal gait Orientation/consciousness: patient oriented x3 HENMT Head: Yes normocephalic Ears: hearing grossly normal bilaterally, TM's normal bilaterally and EAC's normal General nose exam: Normal external nose present and No nasal discharge present Face and sinus: Yes face symmetric Mouth: Normal oral and palatal mucosa present, oropharynx normal and moist mucous membranes Eyes General: appearance normal, both eyes and all related structures Neck Neck: Yes full ROM, Yes no lymphadenopathy and Yes supple Thyroid: Thyroid normal Chest Breast/axilla palpation: normal palpation of the breasts Resp Auscultation: clear to auscultation bilaterally Cardio Other: S1-S2 present regular rate and rhythm GI Other: Normal bowel sounds, soft, nontender, no mass palpated General: Yes no CVA tenderness and Yes deferred Back/Spine/Pelvis Back: no CVA tenderness and No back tenderness Skin General skin exam: no rashes or lesions noted Neuro General: patient oriented x3, gait normal, tone normal, moves all extremities, Normal light touch and pain sensation, no focal motor deficits and CN's II-XI intact bilaterally Extrem General: Yes full ROM, Yes no joint enlargement, Yes no pedal edema and Yes normal gait Psych Appearance: grossly normal and well kempt Mental Status: mental status grossly normal Speech and movement: Normal speech and movement present Affect: normal affect Attitude: cooperative Thought process: Normal thought process present Immunizations pneumoc 20-benson conj-dip cr(PF) 0.5 mL IM syringe Performing Provider: Belia Cooper MD Performing Location: [facility] Administered by: KAMARI Ignacio on 01/15/24 09:59 Dose Route Admin Location Dispensed Lot Number Expiration Date NDC Air Quality Consultant 0.5 mL IM Left Deltoid 0.5 mL [id number] 12/21/24 1336-7121-13 [employer] VIS Given Date VIS Provided VIS Publication Date 01/15/24 Single Vaccine 21 Eligibility Eligibility Date Funding Source Not VF Eligible 01/15/24 Private Results Reviewed Results Reviewed: Laboratory Tests 09/10/23 07:55 WBC 4.7 L Hgb 12.2 Hct 36.8 L MCV 90.2 MCH 29.9 Plt Count 344 Name: Cee Farah Age/Sex: 67/F : 1955 Unit#: [id number] Attend Dr: Maurisio Toscano MD Re09/10/23 Status: DIS IN Location: [place] [address] Disch: 09/11/23 SPEC : [id number] TINO: 09/10/23075 STATUS: COMP REQ : [id number] RECD: 09/10/[address] [facility] DR: Dorota Box COMP: 09/10/23 ENTERED: 09/10/[address]: Belia Cooper MD ORDERED: BMP, CK Total Test Result Flag Reference Sodium 138 135-145 mmol/L Potassium 3.9 3.3-5.1 mmol/L CL 105 96-108 mmol/L CO2 28 22-29 mmol/L Gap 9 L 12-20 BUN 10 9-16 mg/dL Creat 0.83 0.5-1.4 mg/dL Estimated CrCl 68.1 Provided height and weight: 172.72 cm, 70.4 kg. eGFR (calculated from the MDRD study equation) and eCrCl (calculated from the Cockcroft-Gault equation) are based on different parameters and may not yield comparable results. If eCrCl result is absurd, please check patient's height/weight. EGFR > 60 NOTE: For -Namib[place] individuals, multiply the result by 1.210. Chronic Kidney Disease: Estimated GFR < 60 mL/min/1.73m2 Severe Kidney Disease: Estimated GFR < 15 mL/min/1.73m2 Glucose, Random 87 60-115 mg/dL CA 9.4 8.4-10.2 mg/dL CK Total 61 26-140 U/L Assessment and Plan Assessment & Plan (1) Annual visit for general adult medical examination with abnormal findings: Code(s): Z00.01 - Encounter for general adult medical examination with abnormal findings Plan: Will check a fasting lipid panel, results of recent labs were within normal jo its. Continue with regular dental visit every 6 months and regular eye exams, at least every 2 years, goes to [employer] in [place]. Take adequate calcium in diet and vitamin-D 3 at 2000 IU per cap once a day, in addition to weight- bearing exercises to help maintain good muscle tone and weight control. Bone density scan ordered. Instructed to do self-breast exam, and recommended to get yearly mammogram, mammogram referral ordered up-to-date with all her vaccinations, Prevnar 20 given today. Reminded to get her shingles vaccine which is administered at a pharmacy. She is up-to-date with her screening colonoscopy, last done [address] Livingston, with removal of a tubular adenoma polyp, due again in 2027 (2) Osteoporosis: Code(s): M81.0 - Age-related osteoporosis without current pathological fracture Plan: Advised to do regular weight-bearing exercise at least 15 units daily, continue taking calcium supplements with diet sources and continue with vitamin-D 3 supplement 2000 units daily. Does not want to start and would like to have a repeat bone density scan done.. (3) History of adenomatous polyp of colon: Code(s): Z86.010 - Personal history of colonic polyps Plan: Removed in 2022 colonoscopy repeat colonoscopy due again in 2019 (4) Depression, major, in remission: Code(s): F32.5 - Major depressive disorder, single episode, in full remission Plan: Followed by Esha Herbert, currently doing well on duloxetine (5) Chronic GERD: Code(s): K21.9 - Gastro-esophageal reflux disease without esophagitis Plan: Had an upper endoscopy done in [address] Livingston, currently on esomeprazole (6) Acute migraine: Code(s): G43.909 - Migraine, unspecified, not intractable, without status migrainosus Plan: Doing well on propranolol for prophylaxis, previously seen by Dr. 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: Code(s): T78.01XA - Anaphylactic reaction due to peanuts, initial encounter Plan: Has EpiPen Orders: Orders XR DEXA axial skeleton 01/15/24 E28.319 - Asymptomatic premature menopause, M81.0 - Age-related osteoporosis without current pathological fracture, Z12.31 - Encounter for screening mammogram for malignant neoplasm of breast Pneumococcal 20 Immunization 01/15/24 Z23 - Encounter for immunization MM tomosynthesis screening BI 01/15/24 E28.319 - Asymptomatic premature menopause, M81.0 - Age-related osteoporosis without current pathological fracture, Z12.31 - Encounter for screening mammogram for malignant neoplasm of breast Vitamin D 25-OH Total 01/15/24 E28.319 - Asymptomatic premature menopause, M81.0 - Age-related osteoporosis without current pathological fracture, Z00.01 - Encounter for general adult medical examination with abnormal findings, Z13.220 - Encounter for screening for lipoid disorders Lipid Panel 01/15/24 E28.319 - Asymptomatic premature menopause, M81.0 - Age- related osteoporosis without current pathological fracture, Z00.01 - Encounter for general adult medical examination with abnormal findings, Z13.220 - Encounter for screening for lipoid disorders Coding Level of Care Code Est Pt Prev Care >65y(49543) Diagnoses Annual visit for general adult medical examination with abnormal findings Z00.01 Osteoporosis M81.0 History of adenomatous polyp of colon Z86.010 Depression, major, in remission F32.5 Chronic GERD K21.9 Acute migraine G43.909 Chronic insomnia F51.04 Environmental and seasonal allergies J30.89 Allergy with anaphylaxis due to peanuts T78.01XA
[2024-01-15 09:02] VITALS: BP 102/66; PULSE 85; O2SAT 100; BMI 20.2
== END 2024-01-15 10:03 | disposition home or self-care (01) ==
PROVIDERS: PCP Internal Medicine; Visit Provider Internal Medicine
DX: Z00.00 Encounter for general adult medical examination without abnormal findings (principal); F32.5 Major depressive disorder, single episode, in full remission; M81.0 Age-related osteoporosis without current pathological fracture; Z23 Encounter for immunization; Z86.010 Personal history of colon polyps; K21.9 Gastro-esophageal reflux disease without esophagitis; G43.909 Migraine, unspecified, not intractable, without status migrainosus; F51.04 Psychophysiologic insomnia; J30.89 Other allergic rhinitis; T78.01XA Anaphylactic reaction due to peanuts, initial encounter
CPT/HCPCS: 90471; 90677; 99397

== ENCOUNTER 2024-03-25 12:24 | Outpatient (REF) | payer OTHER, SELFPAY ==
--- NOTE | ~2024-03-25 | MM_ITS ---
EXAMINATION: BONE DENSITOMETRY CLINICAL INDICATION: Asymptomatic menopausal state. COMPARISON: Baseline BD dated 03/21/2022. TECHNIQUE: Using a AFTER-MOUSE DXA System (software version: 13.1) manufactured by [employer], dual-energy x-ray absorptiometry was performed of the lumbar spine and left hip. The images are of good technical quality. Summary results are attached. FINDINGS: LEFT FEMUR, NECK: Current: BMD 0.722 g/cm2, Z-score -0.6, T-score -2.3, osteopenia. Baseline: BMD 0.692 g/cm2. LEFT FEMUR, TOTAL: Current: BMD 0.714 g/cm2, Z-score -0.9, T-score -2.3, osteopenia, 5.6% decrease from baseline (<5% change is not significant). Baseline: BMD 0.756 g/cm2. AP SPINE L1-L4: Current: BMD 0.859 g/cm2, Z-score -0.8, T-score -2.7, osteoporosis, 4.7% decrease from baseline (<5% change is not significant). Baseline: BMD 0.901 g/cm2. IDENTIFIED RISK FACTORS: Early menopause, secondary osteoporosis, left oophorectomy, hysterectomy. HISTORY OF FRACTURE: None listed. MEDICATIONS: Vitamin D. MM/XR DEXA axial skeleton IMPRESSION: 1. DIAGNOSIS: Osteoporosis based on the lowest T-score value of -2.7 in the lumbar spine applying World Health Organization criteria. 2. 10-YEAR FRACTURE RISK PREDICTION, FRAX: According to the guidelines, FRAX calculation should only be performed on patients in the osteopenia bone density category. Therefore, FRAX was not performed on this patient. 3. Treatment Recommendations: NOF guidelines recommend consideration for treatment in postmenopausal women and men age 50 and older presenting with the following: -A hip or vertebral (clinical or morphometric) fracture. -T-score less than or equal to -2.5 at the femoral neck or spine after appropriate evaluation to exclude secondary causes. -Low bone mass at the hip or spine and a 10-year fracture probability by FRAX of greater than or equal to 3% for hip fracture or greater than or equal to 20% for major osteoporotic fracture based on the [place] adapted WHO algorithm. 4. Other Recommendations: All treatment decisions require clinical judgment and consideration of individual patient factors, including patient preferences, comorbidities, previous drug use, risk factors not captured in the FRAX model (e.g. frailty, falls, vitamin D deficiency, increased bone turnover, interval significant decline in bone density) and possible under or overestimation of fracture risk by FRAX. Additional medical evaluation for secondary cause of low bone mineral density may be appropriate. FUTURE SCAN RECOMMENDATION: People with diagnosed cases of osteoporosis or at high risk for fracture should have regular bone mineral density tests. For patients eligible for Medicare, routine testing is allowed once every 2 years. The testing frequency can be increased to one year for patients who have rapidly progressing disease, those who are receiving or discontinuing medical therapy to restore bone mass, or have additional risk factors. Electronically signed by: Mal Suggs MD 04/01/2024 03:48 PM EDT [place]
--- NOTE | ~2024-03-25 | MM_ITS ---
EXAMINATION: MM SCREENING DIGITAL BREAST TOMOSYNTHESIS, BILATERAL CLINICAL INFORMATION: Screening. Asymptomatic. COMPARISON: Mammography: Comparison is made with available priors TECHNIQUE: Digital breast mammography with tomosynthesis is performed in both the craniocaudal and mediolateral oblique views along with computer-aided detection (CAD). FINDINGS: The breasts are heterogeneously dense, which may obscure small masses (ACR BI-RADS breast composition Category c). There are no significant masses, abnormal calcifications, or other abnormalities. MM/MM tomosynthesis screening BI IMPRESSION: No mammographic evidence of malignancy. ASSESSMENT: BI-RADS BI-RADS 1 - Negative RECOMMENDATION: Routine annual mammography screening. 1 year F/U This examination should not preclude the clinical evaluation of a suspicious palpable abnormality. This patient's information was entered into a reminder system with a target due date for their next mammogram. Electronically signed by: Willow Lezama DO 04/06/2024 01:51 PM EDT
== END 2024-03-25 12:25 | disposition home or self-care (01) ==
LOC: HO.MAMMO 12:24
PROVIDERS: Visit Provider Internal Medicine
DX: Z12.31 Encounter for screening mammogram for malignant neoplasm of breast (principal); M81.0 Age-related osteoporosis without current pathological fracture; E28.319 Asymptomatic premature menopause
CPT/HCPCS: 77063; 77067; 77080

== ENCOUNTER → 2024-03-25 12:45 | Outpatient (BNV) | payer OTHER, SELFPAY | PROVIDERS: Visit Provider Internal Medicine | DX: Z12.31 Encounter for screening mammogram for malignant neoplasm of breast (principal) | CPT/HCPCS: 77063; 77067 ==

== ENCOUNTER 2025-03-30 13:05 | Outpatient (AMB) | payer OTHER, SELFPAY ==
--- NOTE | 2025-03-30 13:26 | A.OFFPC_ITS ---
Vital Signs 03/30/25 13:27 Height 5 ft 8 in Weight 128 lb BMI 19.5 BP 102/70 Blood Pressure Location Lt brachial Position Sitting Pulse 81 Pulse Source Pulse Oximeter Temp 98.4 F Temp Source Oral Pulse Oximetry (%) 99 Oxygen Delivery Method Room Air Intake Visit Reasons: Annual PE Intake Note: Pt is here today for her PE: Last mammogram 03/25/24, bone density scan 03/25/24, cologuard 07/31/22 Allergies codeine Adverse Reaction (Verified 04/04/25 21:12) swolleness latex Adverse Reaction (Verified 04/04/25 21:12) hives peanut Adverse Reaction (Verified 04/04/25 21:12) Anaphylaxis Penicillins Adverse Reaction (Verified 04/04/25 21:12) Anaphylaxis shellfish derived Adverse Reaction (Verified 04/04/25 21:12) hives Medication List - Last Reconciled 03/30/25 by Belia Cooper MD cholecalciferol (vitamin D3) 50 mcg PO DAILY duloxetine 60 mg PO DAILY epinephrine (EpiPen 2-Chuck) 0.3 mg IM Q4H PRN esomeprazole magnesium (Nexium) 20 mg PO BID fluticasone propionate 50 mcg/actuation (Flonase Allergy Relief) 1 spray intranasal DAILY propranolol 40 mg PO BID zolpidem 10 mg PO BEDTIME PRN Tobacco use date assessed: 03/30/25 Fall risk assessment: No Falls in past year Last assessed Fall Risk: 03/30/25 Dental Screening Dental Screen Date: 03/30/25 Did you have a dental visit in the last 12 months?: No Did you have a dental problem in the last 6 months where you did not have access to dental care?: No Was dental information given to patient?: Patient has dentist HPI Annual PE HPI Details 69-year-old lady here today for her phys ical exam. She is up-to-date with her cancer screening, with last mammogram done 03/25/24 with benign findings. She has an appointment already scheduled for her repeat screening mammogram on 04/01/2025. She is up-to-date with her osteoporosis screening, with last bone density scan done 03/25/24 showing osteoporosis in her lumbar spine and osteopenia in left femoral neck and left femur, with no history of fractures. Colon cancer screening done by by Dr. Livingston 07/31/2022 with a tubular adenoma polyp removed, repeat colonoscopy due again in 3-5 years. EGD was also done at the same time which revealed presence of reflux currently on esomeprazole 20 mg b.i.d. She has a severe allergy to peanuts, needs a refill on her EpiPen Has history of fibroids, status post partial hysterectomy with left salpingo- oophorectomy done by Dr. Mcdaniel in 2003 Duloxetine for depression, currently stable and controlled on present treatment History of environmental and seasonal allergies, previously received immunotherapy by Dr. 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 Chronic GERD Surgical History History of esophagogastroduodenoscopy (EGD) Hx of colonoscopy Status post abdominal hysterectomy and left salpingo-oophorectomy Hx of tonsillectomy Family History Mother Mental health disorder Social History Housing: Condominium Are you a primary care attendant to a significant other at home: No Do you presently have visiting nurse or other home services: No Patient Tobacco Use Status: Never used Tobacco e-Cigarette/Vaping Use: Never Used service: No Current occupational status: employed Current occupation: respiratory therapist at [employer] Cognitive needs: No Hearing needs: No Vision needs: Yes Female Reproductive History Menstrual Menopause type: surgical (Status post partial hysterectomy left salpingo- oophorectomy in 2003) Questionnaire PHQ-9 Over the last 2 weeks, how often have you been bothered by any of the following problems? 1. Little interest or pleasure in doing things: not at all 2. Feeling down, depressed, or hopeless: not at all 3. Trouble falling or staying asleep, or sleeping too much: several days 4. Feeling tired or having little energy: not at all 5. Poor appetite or overeating: not at all 6. Feeling bad about yourself - or that you are a failure or have let yourself or your family down: not at all 7. Trouble concentrating on things, such as reading the newspaper or watching television: not at all 8. Moving or speaking so slowly that other people could have noticed. Or the opposite - being so fidgety or restless that you have been moving around a lot m ore than usual: not at all 9. Thoughts that you would be better off or of hurting yourself in some way: not at all Total score: 1 Depression Screening Interpretation: Negative (Depression controlled on present meds) Depression Screening Done: Yes 94633 - PHQ-9 Billing: Yes Source: Developed by Drs. Patrice Garcia, Agustina Soler, Karan Morrow and colleagues, with an educational cynthia from [employer]. Thrive Questionnaire Date Thrive assessed: 03/30/25 I am a: Patient What is your living situation today?: I have a steady place to live Within the past 12 months, did the food you bought not last and you didn't have the money to get more?: Never true Within the past 12 months, did you worry whether your food would run out before you got money to buy more?: Never true Do you have trouble paying for medicines?: No Do you have trouble getting transportation to medical appointments?: No Do you have trouble paying your heating and electricity bill?: No Do you have trouble taking care of your child, family member or friend?: No Do you have trouble with day-to-day activities such as bathing, preparing meals, shopping, managing finances, etc.?: No Are you currently unemployed and looking for a job?: No Are you interested in more education?: No Please select the resources that you would like help with: None Currently or been in a relationship where the following occur: No concerns reported THRIVE Score: 0 AUDIT C Alcohol Use Questionnaire (AUDIT-C) 1. How often do you have a drink containing alcohol?: Never 3. How often do you have six or more drinks on one occasion?: Never Total Score: 0 Score Reviewed/Action Taken: Yes TENNILLE-7 AMB Questionnaire TENNILLE-7 Date TENNILLE - 7 assessed: 03/30/25 Feeling nervous, anxious, or on edge: 0 = Not at all Not being able to stop or control worryin = Not at all Worrying too much about different things: 0 = Not at all Trouble relaxin = Not at all Being so restless that it is hard to sit still: 0 = Not at all Becoming easily annoyed or irritable: 0 = Not at all Feeling afraid as if something awful might happen: 0 = Not at all Total TENNILLE-7 score (0-4 normal; 5-9 mild; 10-14 moderate; 15-21 severe): 0 Source: Developed by Drs. Patrice Garcia, Agustina Soler, Karan Morrow and colleagues, with an educational cynthia from [employer]. TENNILLE-7 Assessment Billing TENNILLE-7 Assessment Tool: TENNILLE-7 Assessment 05153 Review of Systems Const Denies body aches, Denies fatigue, Denies fever(s), Denies headache(s) and Denies weakness Eyes Details: Goes to [facility] every 2 years, has myopia, wears contact lens Denies change in vision, Denies eye discharge and Denies itchy eyes ENT Details: Gets dental prophylaxis every 6 months Denies dizziness, Denies headache(s), Denies nasal congestion and Denies sore throat Card Denies chest pain, Denies lightheadedness, Denies palpitations and Denies dyspnea Resp Denies chest congestion, Denies cough, Denies dyspnea and Denies wheezing GI Denies abdominal pain and Denies change in bowel habits Denies hematuria, Denies urinary frequency, Denies dysuria and Denies urinary urgency Musc Reports no additional complaints Skin/Breast Denies breast pain, Denies breast mass, Denies lesions and Denies rash Neuro Denies dizziness, Denies headache(s) and Denies weakness Psych Reports no additional complaints Endo Denies fatigue, Denies polydipsia, Denies polyuria and Denies palpitations Nsétor/Lymph Denies easy bruising Aller/Immun Denies itchy eyes, Denies seasonal rhinorrhea and Denies wheezing Physical exam (Primary Care) Vital Signs: Last Vital Signs Temp 98.4 F 03/30/25 13:27 Pulse 81 10/07/25 13:27 BP 102/70 03/30/25 13:27 Pulse Ox 99 03/30/25 13:27 Oxygen Delivery Method Room Air 03/30/25 13:27 BMI result Body Mass Index 19.5 Tobacco/Smoking Status: Tobacco use Status Tobacco use date assessed 03/30/25 03/30/25 13:31 Patient Tobacco Use Status Never used Tobacco 03/30/25 14:01 e-Cigarette/Vaping Use Never Used 03/30/25 14:01 PHQ-9: PHQ-9 Score PHQ-9: Total score 1 04/04/25 21:12 Depression Screening Interpretation: Negative (Depression controlled on present meds) Thrive Assessment: Date of Thrive Assessment Date Thrive assessed 03/30/25 03/30/25 13:31 Currently or been in a relationship where the following occur: No concerns reported Const Other: Alert oriented x3, no acute distress noted ambulatory with normal gait HENMT Head: Yes normocephalic Ears: hearing grossly normal bilaterally, TM's normal bilaterally and EAC's normal General nose exam: Normal external nose present Face and sinus: Yes face symmetric Mouth: Normal oral and palatal mucosa present and moist mucous membranes Eyes General: appearance normal, both eyes and all related structures Neck Neck: Yes full ROM, Yes no lymphadenopathy and Yes supple Thyroid: Thyroid normal Chest Breast/axilla palpation: normal palpation of the breasts Resp Auscultation: clear to auscultation bilaterally Cardio Other: S1-S2 present regular rate and rhythm GI Other: Normal bowel sounds, soft, nontender, no mass palpated General: Yes no CVA tenderness and Yes deferred Back/Spine/Pelvis Back: no CVA tenderness and No back tenderness Skin General skin exam: no rashes or lesions noted Neuro General: gait normal, tone normal, moves all extremities, Normal light touch and pain sensation, no focal motor deficits and CN's II-XI intact bilaterally Extrem General: Yes full ROM, Yes no joint enlargement, Yes no pedal edema and Yes normal gait Psych Appearance: grossly normal and well kempt Mental Status: mental status grossly normal Speech and movement: Normal speech and movement present Affect: normal affect Coding Level of Care Code Est Pt Prev Care >65y(10588) Diagnoses Annual visit for general adult medical examination with abnormal findings Z00.01 Age-related osteoporosis without current pathological fracture M81.0 Osteoporosis type: age-related Presence of current pathological fracture: without current pathological fracture Chronic GERD K21.9 Depression, major, in remission F32.5 Environmental and seasonal allergies J30.89 Chronic insomnia F51.04 History of adenomatous polyp of colon Z86.010 Allergy with anaphylaxis due to peanuts T78.01XA Additional Codes TENNILLE-7 Assessment Billing - TENNILLE-7 Assessment Tool: TENNILLE-7 Assessment 90884 ([id number]) PHQ-9 - 41935 - PHQ-9 Billing: Yes ([id number]) Assessment & Plan Assessment & Plan (1) Annual visit for general adult medical examination with abnormal findings: Code(s): Z00.01 - Encounter for general adult medical examination with abnormal findings Plan: Will check appropriate labs. Continue regular dental visit every 6 months and up-to-date with eye exam, goes to [facility]. Take adequate calcium in diet and vitamin-D 3 at 2000 IU per cap once a day, in addition to weight-bearing exercises to help maintain good muscle tone and weight control. Last osteoporosis in lumbar spine, referred to endocrine clinic for further evaluation and management. Instructed to do self-breast exam, and continue to get yearly mammogram. Immunization information provided: Yearly flu vaccine, shingles vaccine starting at age 50, at age 67 to start getting Prevnar 13 followed 1 year later by Pneumovax 23. Up-to-date with her screening for colon cancer, reminded to get her yearly flu vaccine and COVID booster, up-to-date with her pneumonia vaccine and Tdap, advised to get vaccinated against herpes zoster (2) Osteoporosis: Code(s): M81.0 - Age-related osteoporosis without current pathological fracture Category: Medical Qualifiers: Osteoporosis type: age-related Presence of current pathological fracture: without current pathological fracture Qualified Code(s): M81.0 - Age- related osteoporosis without current pathological fracture Plan: Continue with taking vitamin-D 3 supplements 50 mcg or 2000 units daily, take adequate calcium from dietary sources, active do regular weight-bearing exercise, referred to endocrine clinic for further evaluation and management (3) Chronic GERD: Code(s): K21.9 - Gastro-esophageal reflux disease without esophagitis Category: Medical Plan: Currently on esomeprazole 20 mg 1 capsule twice a day (4) Depression, major, in remission: Code(s): F32.5 - Major depressive disorder, single episode, in full remission Category: Medical Plan: Controlled on duloxetine 60 mg daily (5) Environmental and seasonal allergies: Comment: previously received allergy shots with dr Zhang Code(s): J30.89 - Other allergic rhinitis Category: Medical Plan: Uses Flonase nasal spray as needed (6) Chronic insomnia: Code(s): F51.04 - Psychophysiologic insomnia Category: Medical Plan: Takes zolpidem as needed (7) History of adenomatous polyp of colon: Code(s): Z86.010 - Personal history of colon polyps Category: Medical Plan: Up-to-date with her colon cancer screening, due again for recheck in 3-[address] Livingston (8) Allergy with anaphylaxis due to peanuts: Code(s): T78.01XA - Anaphylactic reaction due to peanuts, initial encounter Category: Medical Plan: Prescription given for EpiPen, to use as needed Orders: Orders Aspartate Amino Transferase 04/01/25 M81.0 - Age-related osteoporosis without current pathological fracture, F32.5 - Major depressive disorder, single episode, in full remission, J30.89 - Other allergic rhinitis, K21.9 - Gastro- esophageal reflux disease without esophagitis, Z86.010 - Personal history of colon polyps, E28.319 - Asymptomatic premature menopause, F51.04 - Psychophysiologic insomnia, Z00.01 - Encounter for general adult medical examination with abnormal findings Alanine Aminotransferase 04/01/25 M81.0 - Age-related osteoporosis without current pathological fracture, F32.5 - Major depressive disorder, single episode, in full remission, J30.89 - Other allergic rhinitis, K21.9 - Gastro- esophageal reflux disease without esophagitis, Z86.010 - Personal history of colon polyps, E28.319 - Asymptomatic premature menopause, F51.04 - Psychophysiologic insomnia, Z00.01 - Encounter for general adult medical examination with abnormal findings Lipid Panel 04/01/25 M81.0 - Age-related osteoporosis without current pathological fracture, F32.5 - Major depressive disorder, single episode, in full remission, J30.89 - Other allergic rhinitis, K21.9 - Gastro-esophageal reflux disease without esophagitis, Z86.010 - Personal history of colon polyps, E28.319 - Asymptomatic premature menopause, F51.04 - Psychophysiologic insomnia, Z00.01 - Encounter for general adult medical examination with abnormal findings Complete Blood Count Auto Diff 04/01/25 M81.0 - Age-related osteoporosis without current pathological fracture, F32.5 - Major depressive disorder, single episode, in full remission, J30.89 - Other allergic rhinitis, K21.9 - Gastro- esophageal reflux disease without esophagitis, Z86.010 - Personal history of colon polyps, E28.319 - Asymptomatic premature menopause, F51.04 - Psychophysiologic insomnia, Z00.01 - Encounter for general adult medical examination with abnormal findings Basic Metabolic Panel Fasting 04/01/25 M81.0 - Age-related osteoporosis without current pathological fracture, F32.5 - Major depressive disorder, single episode, in full remission, J30.89 - Other allergic rhinitis, K21.9 - Gastro- esophageal reflux disease without esophagitis, Z86.010 - Personal history of colon polyps, E28.319 - Asymptomatic premature menopause, F51.04 - Psychophysiologic insomnia, Z00.01 - Encounter for general adult medical examination with abnormal findings Vitamin D 25-OH Total 04/01/25 M81.0 - Age-related osteoporosis without current pathological fracture, F32.5 - Major depressive disorder, single episode, in full remission, J30.89 - Other allergic rhinitis, K21.9 - Gastro-esophageal reflux disease without esophagitis, Z86.010 - Personal history of colon polyps, E28.319 - Asymptomatic premature menopause, F51.04 - Psychophysiologic insomnia, Z00.01 - Encounter for general adult medical examination with abnormal findings Referrals Endocrinology Referral M81.0 - Age-related osteoporosis without current pathological fracture Medications: New epinephrine (EpiPen 2-Chuck) 0.3 mg (0.3 mL) IM Q4H PRN 2 ea 5RF anaphylaxis T78.01XA - Anaphylactic reaction due to peanuts, initial encounter
[2025-03-30 13:27] VITALS: BP 102/70; PULSE 81; TEMP 36.9; O2SAT 99; BMI 19.5
== END 2025-03-30 14:14 | disposition home or self-care (01) ==
LOC: HO.HMCC 13:06
PROVIDERS: PCP Internal Medicine; Visit Provider Internal Medicine
DX: Z00.01 Encounter for general adult medical examination with abnormal findings (principal); M81.0 Age-related osteoporosis without current pathological fracture; K21.9 Gastro-esophageal reflux disease without esophagitis; F32.5 Major depressive disorder, single episode, in full remission; J30.89 Other allergic rhinitis; F51.04 Psychophysiologic insomnia; Z86.0100 Personal history of colon polyps, unspecified; T78.01XA Anaphylactic reaction due to peanuts, initial encounter

== ENCOUNTER → 2025-03-30 13:05 | Outpatient (BNVA) | payer OTHER, SELFPAY | PROVIDERS: PCP Internal Medicine; Visit Provider Internal Medicine | DX: Z00.01 Encounter for general adult medical examination with abnormal findings (principal); M81.0 Age-related osteoporosis without current pathological fracture; K21.9 Gastro-esophageal reflux disease without esophagitis; F32.5 Major depressive disorder, single episode, in full remission; J30.89 Other allergic rhinitis; F51.04 Psychophysiologic insomnia; Z86.0109 Personal history of other colon polyps; Z91.010 Allergy to peanuts | CPT/HCPCS: 96127 ==

== ENCOUNTER 2025-04-01 06:31 | Outpatient (REF) | payer OTHER, SELFPAY ==
--- NOTE | ~2025-04-01 | MM_ITS ---
EXAMINATION: MM SCREENING DIGITAL BREAST TOMOSYNTHESIS, BILATERAL CLINICAL INFORMATION: Screening. Asymptomatic. COMPARISON: Comparison made to multiple prior, most recent of March 25, 2024, and most remote August 10, 2016. TECHNIQUE: Digital breast tomosynthesis is performed in mediolateral oblique and craniocaudal views along with computer-aided detection (CAD). Synthesized 2D images are generated from the tomosynthesis. FINDINGS: BREAST COMPOSITION: The breasts are heterogeneously dense, which may obscure small masses. BILATERAL BREASTS: No significant masses, suspicious calcifications or other abnormalities are seen in either breast. MM/MM tomosynthesis screening BI IMPRESSION: BILATERAL BREASTS: Negative, no mammographic evidence of malignancy. Normal interval follow-up is recommended in 12 months. ASSESSMENT: BI-RADS: Category 1: Negative RECOMMENDATION: Routine annual mammography screening. FOLLOW-UP: 1 year F/U This examination should not preclude the clinical evaluation of a suspicious palpable abnormality. This patient's information was entered into a reminder system with a target due date for their next mammogram. Electronically signed by: Kristi Gallo MD 04/09/2025 06:23 PM EDT
[2025-04-01 06:45] LABS: MANUAL DIFF FLAG NO
[2025-04-01 07:21] LABS: Hematocrit 41.7 % (37.0-47.0); Hemoglobin 13.2 g/dl (12.0-16.0); Imm Gran Abs Auto 0.01 X10*3/uL (0.00-0.03); Imm Gran Pct Auto 0.2 % (0.0-0.4); Lymphocytes Absolute Auto 2.4 X10*3/uL (1.2-4.9); Mean Corpuscular HGB Conc 31.7 g/dl (31.0-35.0); Mean Corpuscular Hemoglobin 26.3 pg (27.0-33.0); Mean Corpuscular Volume 83.1 fL (80.0-98.0); NRBC Abs Auto 0.000 X10*3/uL (0.0-0.012); NRBC Pct Auto 0.0 /100WBC (0.0-0.2); Platelet Count 438 X10*3/uL (160-400); Red Blood Count 5.02 X10*6/uL (4.20-5.50); White Blood Count 5.7 X10*3/uL (4.8-10.8)
[2025-04-01 08:09] LABS: Alanine Aminotransferase 17 U/L (0-31); Anion Gap 13 (12-20); Aspartate Amino Transferase 20 U/L (5-31); Blood Urea Nitrogen 13 mg/dL (9-16); Calcium 10.0 mg/dL (8.4-10.2); Carbon Dioxide 26 mmol/L (22-29); Chloride 105 mmol/L (96-108); Cholesterol 241 mg/dL (<200); Estimated Glomerular Filt Rate > 60; HDL Cholesterol 75 mg/dL (>40); Potassium 4.3 mmol/L (3.3-5.1); Sodium 140 mmol/L (135-145); Triglycerides 87 mg/dL (<150)
== END 2025-04-01 06:32 | disposition home or self-care (01) ==
LOC: HO.MAMMO 06:31
PROVIDERS: PCP Internal Medicine; Visit Provider Internal Medicine
DX: Z00.01 Encounter for general adult medical examination with abnormal findings (principal); Z12.31 Encounter for screening mammogram for malignant neoplasm of breast; Z13.6 Encounter for screening for cardiovascular disorders; M81.0 Age-related osteoporosis without current pathological fracture; F32.5 Major depressive disorder, single episode, in full remission; J30.89 Other allergic rhinitis; K21.9 Gastro-esophageal reflux disease without esophagitis; E28.319 Asymptomatic premature menopause; F51.04 Psychophysiologic insomnia
CPT/HCPCS: 36415; 77063; 77067; 80048; 80061; 82306; 84450; 84460; 85025

== ENCOUNTER → 2025-04-01 13:00 | Outpatient (BNV) | payer OTHER, SELFPAY | PROVIDERS: PCP Internal Medicine; Visit Provider Radiology Body Imaging | DX: Z12.31 Encounter for screening mammogram for malignant neoplasm of breast (principal) | CPT/HCPCS: 77063; 77067 ==